=== PATIENT | male | born 1960 ===

== ENCOUNTER → 2019-12-25 11:07 | Outpatient (BNVA) | payer MEDICAID, SELFPAY | PROVIDERS: PCP Internal Medicine; Referring Provider Internal Medicine; Visit Provider Nurse Practitioner Gerontology | DX: E11.29 Type 2 diabetes mellitus with other diabetic kidney complication (principal); E11.65 Type 2 diabetes mellitus with hyperglycemia; I10 Essential (primary) hypertension; R80.9 Proteinuria, unspecified; Z79.4 Long term (current) use of insulin; Z79.899 Other long term (current) drug therapy | CPT/HCPCS: 99213; Q3014 ==

== ENCOUNTER 2020-01-04 07:57 | Outpatient (REF) | payer MEDICAID, SELFPAY ==
[2020-01-04 09:43] LABS: Estimated Average Glucose 280 mg/dL; Hemoglobin A1c % 11.4 %
[2020-01-04 10:17] LABS: Alanine Aminotransferase 45 U/L (0-40); Albumin Level 3.5 g/dL (3.5-5.0); Alkaline Phosphatase 91 U/L (39-117); Anion Gap 10 (12-20); Aspartate Amino Transferase 50 U/L (5-37); Bilirubin Total 1.3 mg/dL (0.0-1.0); Blood Urea Nitrogen 13 mg/dL (9-16); Calcium 8.5 mg/dL (8.4-10.2); Carbon Dioxide 28 mmol/L (22-29); Chloride 103 mmol/L (96-108); Cholesterol 172 mg/dL; Estimated Glomerular Filt Rate > 60; Glucose Fasting 243 mg/dL (60-99); HDL Cholesterol 43 mg/dL; LDL Cholesterol Calculated 103 mg/dl; Sodium 137 mmol/L (135-145); Total Protein 6.8 g/dL (6.5-8.0); Triglycerides 131 mg/dL
[2020-01-04 10:22] LABS: Creatinine Urine 193.51 mg/dL
[2020-01-04 10:44] LABS: Microalbum/Creatinine Ratio Ur 361.7 ug/mg cr
[2020-01-05 06:47] LABS: LDL Cholesterol Direct 89 mg/dL (<100)
== END 2020-01-04 07:58 | disposition home or self-care (01) ==
LOC: HO.LAB 07:57
PROVIDERS: PCP Internal Medicine; Visit Provider Nurse Practitioner Gerontology
DX: E11.65 Type 2 diabetes mellitus with hyperglycemia (principal)
CPT/HCPCS: 80053; 80061; 82043; 83036; 83721

== ENCOUNTER → 2020-01-22 13:46 | Outpatient (BNVA) | payer MEDICAID, SELFPAY | PROVIDERS: PCP Internal Medicine; Referring Provider Internal Medicine; Visit Provider Nurse Practitioner Gerontology | DX: E11.65 Type 2 diabetes mellitus with hyperglycemia (principal); E11.29 Type 2 diabetes mellitus with other diabetic kidney complication; R80.9 Proteinuria, unspecified; I10 Essential (primary) hypertension; Z79.4 Long term (current) use of insulin | CPT/HCPCS: 99212 ==

== ENCOUNTER 2020-05-20 08:04 | Outpatient (REF) | payer MEDICAID, SELFPAY ==
[2020-05-20 09:02] LABS: Basophils Absolute Auto 0.1 X10*3/uL (0.0-0.2); Basophils Percent Auto 1.1 % (0-2); Eosinophils Absolute Auto 0.3 X10*3/uL (0.0-0.4); Eosinophils Percent Auto 3.9 % (0-4); Imm Gran Abs Auto 0.01 X10*3/uL (0.00-0.03); Imm Gran Pct Auto 0.2 % (0.0-0.4); MANUAL DIFF FLAG SCAN; Mean Corpuscular HGB Conc 34.4 g/dl (31.0-36.0); Mean Corpuscular Hemoglobin 29.9 pg (27.0-33.0); Mean Corpuscular Volume 86.9 fL (80-98); Red Cell Distribution Width 13.5 % (11.0-16.0); SCAN SMEAR FLAG 1
[2020-05-20 09:04] LABS: Hematocrit 43.3 % (42-52); Hemoglobin 14.9 g/dl (14.0-18.0); Lymphocytes Absolute Auto 1.3 X10*3/uL (1.2-4.9); Lymphocytes Percent Auto 19.7 % (20-40); Mean Platelet Volume 12.9 fL (9.4-12.4); Monocytes Absolute Auto 0.6 X10*3/uL (0.1-1.2); Monocytes Percent Auto 9.6 % (2-11); Neutrophils Absolute Auto 4.2 X10*3/uL (2.0-8.3); Neutrophils Percent Auto 65.5 % (45-73); Red Blood Count 4.98 X10*6/uL (4.60-5.80); White Blood Count 6.4 X10*3/uL (4.8-10.8)
[2020-05-20 09:06] LABS: PLT ABN DIST 1
[2020-05-20 09:14] LABS: Estimated Average Glucose 278 mg/dL; Hemoglobin A1c % 11.3 %
[2020-05-20 09:25] LABS: Creatinine Urine 125.11 mg/dL
[2020-05-20 09:30] LABS: Anion Gap 8 (12-20); Blood Urea Nitrogen 14 mg/dL (9-16); Carbon Dioxide 28 mmol/L (22-29); Chloride 102 mmol/L (96-108); Cholesterol 194 mg/dL; Estimated Glomerular Filt Rate > 60; Glucose Random 309 mg/dL (60-115); HDL Cholesterol 46 mg/dL; LDL Cholesterol Calculated 124 mg/dl; Potassium 4.2 mmol/L (3.3-5.1); Sodium 134 mmol/L (135-145); Triglycerides 123 mg/dL
[2020-05-20 09:40] LABS: Microalbum/Creatinine Ratio Ur 700.9 ug/mg cr
[2020-05-20 10:04] LABS: Platelet Count 76 X10*3/uL (160-400)
[2020-05-20 10:05] LABS: SLIDE REVIEW VERIFIED
== END 2020-05-20 08:05 | disposition home or self-care (01) ==
LOC: HO.LAB 08:04
PROVIDERS: Absent Provider Nurse Practitioner Gerontology; PCP Internal Medicine; Visit Provider Internal Medicine
DX: E11.65 Type 2 diabetes mellitus with hyperglycemia (principal); I73.9 Peripheral vascular disease, unspecified; K74.60 Unspecified cirrhosis of liver; R07.89 Other chest pain
CPT/HCPCS: 36415; 80048; 80061; 82043; 83036; 85025

== ENCOUNTER → 2020-06-01 11:38 | Outpatient (BNVA) | payer MEDICAID, SELFPAY | PROVIDERS: PCP Internal Medicine; Visit Provider Nurse Practitioner Gerontology ==

== ENCOUNTER 2020-06-07 13:05 | Outpatient (REF) | payer MEDICAID, SELFPAY ==
--- NOTE | ~2020-06-07 | US_ITS ---
EXAMINATION: NONINVASIVE ASSESSMENT OF THE ARTERIES OF BOTH LOWER EXTREMITIES WITH PVR EXAM AND BILATERAL LOWER EXTREMITY DUPLEX CLINICAL INFORMATION: Peripheral vascular disease TECHNIQUE: Duplex Doppler techniques with wave form analysis and measurement of velocities in the common femoral, profunda femoral, superficial femoral, popliteal and tibial arteries bilaterally. The study was performed only at rest. COMPARISON: None FINDINGS: a) AT REST: RIGHT LEG: Right direct duplex Doppler findings: Normal. * Common femoral artery: 211 cm/s, Diastolic flow reversal: Yes * Superficial femoral artery (proximal, mid, distal): 142, 143 and 192 cm/s, Diastolic flow reversal: Yes * Popliteal artery: 80 cm/s, Diastolic flow reversal: Yes * Posterior tibial artery: 106 cm/s, Diastolic flow reversal: Yes Left LEG: Left direct duplex Doppler findings: Normal. * Common femoral artery: 173 cm/s, Diastolic flow reversal: Yes * Superficial femoral artery (proximal, mid, distal): 117, 144 and 154 cm/s, Diastolic flow reversal: Yes * Popliteal artery: 99 cm/s, Diastolic flow reversal: Yes * Posterior tibial artery: 100 cm/s, Diastolic flow reversal: Yes US/US arterial duplex LE BI IMPRESSION: Slightly elevated peak systolic velocities in the bilateral common femoral and distal superficial femoral arteries bilaterally suggestive of mild atherosclerotic disease. No evidence of hemodynamically significant stenosis.
== END 2020-06-07 13:06 | disposition home or self-care (01) ==
LOC: HO.US 13:05
PROVIDERS: PCP Internal Medicine; Visit Provider Internal Medicine
DX: I73.9 Peripheral vascular disease, unspecified (principal)
CPT/HCPCS: 93925

== ENCOUNTER → 2020-09-06 09:37 | Outpatient (BNVA) | payer MEDICAID, SELFPAY | PROVIDERS: PCP Internal Medicine; Visit Provider Nurse Practitioner Gerontology ==

== ENCOUNTER 2020-09-21 08:20 | Outpatient (REF) | payer MEDICAID, SELFPAY ==
--- NOTE | ~2020-09-21 | US_ITS ---
EXAMINATION: US ABDOMEN COMPLETE CLINICAL INFORMATION: Hepatitis C. History of liver cirrhosis. COMPARISON: Ultrasound abdomen 12/03/2018. CT abdomen and pelvis 01/15/2018. TECHNIQUE: Real-time imaging of the abdominal viscera. FINDINGS: PANCREAS: Normal. ABDOMINAL AORTA: The proximal, mid, and distal segments are normal in caliber. INFERIOR VENA CAVA: Visualized portions are normal. LIVER: The liver is cirrhotic with increased heterogeneous liver echotexture and irregular scalloped contour. There is question of a slightly hyperechoic mass in the caudate lobe measuring 5.1 x 4.2 x 4.6 cm versus possibly enlarged lymph node. There is no intra or extrahepatic biliary duct dilatation. GALLBLADDER: Normal. The gallbladder is physiologically distended without evidence of stones, sludge, polyps, wall thickening or pericholecystic fluid. COMMON BILE DUCT: Normal in caliber measuring 0.4 cm in diameter. RIGHT KIDNEY: Normal No hydronephrosis. No renal calculi or focal parenchymal lesions. The kidney measures 13.6 cm in maximum dimension. LEFT KIDNEY: There is a left pelvic kidney. No hydronephrosis. No renal calculi or focal parenchymal lesions. The kidney measures 13.8 cm in maximum dimension. SPLEEN: The spleen is enlarged. The spleen measures 15.9 cm in maximum dimension. FREE FLUID: None. US/US abdomen complete IMPRESSION: Cirrhotic-appearing liver. Question 5.1 x 4.2 x 4.6 cm slightly hyperechoic mass in the caudate lobe. Follow-up MRI with contrast recommended. Enlarged spleen. No ascites. Left pelvic kidney.
== END 2020-09-21 08:21 | disposition home or self-care (01) ==
LOC: HO.US 08:20
PROVIDERS: PCP Internal Medicine; Visit Provider Internal Medicine
DX: B18.2 Chronic viral hepatitis C (principal)
CPT/HCPCS: 76700

== ENCOUNTER 2020-09-30 10:18 | Outpatient (REF) | payer MEDICAID, SELFPAY ==
--- NOTE | ~2020-09-30 | MR_ITS ---
EXAMINATION: MR ABDOMEN WITHOUT AND WITH CONTRAST CLINICAL INFORMATION: Hepatomegaly and cirrhosis. COMPARISON: Previous abdominal ultrasound September [address] of the abdomen and pelvis December 2017. TECHNIQUE: MR abdomen was performed without and with use of 10 mL intravenous Gadavist gadolinium contrast. Postcontrast images are performed in multiphase dynamic sequences. Imaging was performed in 3 planes. FINDINGS: LUNG BASES: The visualized lung bases are unremarkable. LIVER, GALLBLADDER, AND BILIARY TREE: The liver is cirrhotic with irregular scalloped contour. Later sequences are limited due to motion artifact, particularly postcontrast sequences. There is heterogeneous enhancement of the liver suggestive of fibrosis. There is a small area of early arterial phase enhancement seen high in the dome of the right lobe of the liver that measures 7 mm axial image 19 series 100. This is not appreciated precontrast or on later postcontrast enhanced sequences. There is a 4.5 x 4 x 4 cm lesion in the central liver. This is low signal on T1-weighted sequences, high signal on T2-weighted sequences and demonstrates homogeneous enhancement. This appears outside the caudate lobe on sagittal and coronal sequences and enlarged lymph node over liver lesion is favored. There is no biliary duct dilatation. The gallbladder is normal-appearing. PANCREAS: Unremarkable. SPLEEN: The spleen is enlarged and measures 16.5 cm in length. ADRENAL GLANDS: Normal. KIDNEYS AND URETERS: There is a left pelvic kidney. The right kidney is unremarkable. GASTROINTESTINAL TRACT: No bowel obstruction. No ascites or fluid collection. ABDOMINAL WALL: No significant hernia is appreciated. LYMPH NODES: No other lymphadenopathy is seen. There is no ascites. VASCULAR: There are varices adjacent to the spleen and stomach. Vascular structures are otherwise unremarkable. OSSEOUS STRUCTURES: Marrow signal normal. MR/MR abdomen wo/w con IMPRESSION: Limited exam due to motion artifact. 4.5 x 4 x 4 cm solid enhancing lesion in the central liver. Appearance is more suggestive of an enlarged periportal lymph node than exophytic caudate lobe mass. Percutaneous biopsy would be difficult given central location. Possibly this could be reached with endoscopic ultrasound and biopsy. Cirrhotic-appearing liver. 8 mm area of early arterial phase enhancement in the dome of the right lobe of the liver. Imaging follow-up recommended. Splenomegaly and varices. Left pelvic kidney.
== END 2020-09-30 10:19 | disposition home or self-care (01) ==
LOC: HO.MRI 10:18
PROVIDERS: Visit Provider Internal Medicine
DX: R16.0 Hepatomegaly, not elsewhere classified (principal)
CPT/HCPCS: 74183; A9585

== ENCOUNTER → 2020-10-21 15:13 | Outpatient (BNVA) | payer MEDICAID, SELFPAY | PROVIDERS: Visit Provider Nurse Practitioner ==

== ENCOUNTER 2020-10-25 11:16 | Outpatient (REF) | payer MEDICAID, SELFPAY ==
[2020-10-25 12:20] LABS: Mean Corpuscular Volume 87.2 fL (80-98); Monocytes Absolute Auto 0.6 X10*3/uL (0.1-1.2)
[2020-10-25 12:22] LABS: Basophils Absolute Auto 0.1 X10*3/uL (0.0-0.2); Basophils Percent Auto 1.3 % (0-2); Eosinophils Absolute Auto 0.2 X10*3/uL (0.0-0.4); Hematocrit 43.7 % (42-52); Hemoglobin 15.1 g/dl (14.0-18.0); Imm Gran Abs Auto 0.01 X10*3/uL (0.00-0.03); Imm Gran Pct Auto 0.1 % (0.0-0.4); Lymphocytes Absolute Auto 1.3 X10*3/uL (1.2-4.9); Mean Corpuscular HGB Conc 34.6 g/dl (31.0-36.0); Mean Corpuscular Hemoglobin 30.1 pg (27.0-33.0); Monocytes Percent Auto 8.1 % (2-11); Neutrophils Absolute Auto 4.7 X10*3/uL (2.0-8.3); Neutrophils Percent Auto 68.5 % (45-73); Red Blood Count 5.01 X10*6/uL (4.60-5.80); White Blood Count 6.9 X10*3/uL (4.8-10.8)
[2020-10-25 12:24] LABS: Platelet Count 79 X10*3/uL (160-400)
[2020-10-25 12:25] LABS: MANUAL DIFF FLAG NO
[2020-10-25 12:51] LABS: Alanine Aminotransferase 37 U/L (0-40); Albumin Level 3.4 g/dL (3.5-5.0); Alkaline Phosphatase 152 U/L (39-117); Anion Gap 13 (12-20); Aspartate Amino Transferase 57 U/L (5-37); Bilirubin Total 1.4 mg/dL (0.0-1.0); Blood Urea Nitrogen 17 mg/dL (9-16); Calcium 9.3 mg/dL (8.4-10.2); Carbon Dioxide 25 mmol/L (22-29); Chloride 103 mmol/L (96-108); Estimated Glomerular Filt Rate > 60; Glucose Random 436 mg/dL (60-115); Potassium 4.7 mmol/L (3.3-5.1); Sodium 136 mmol/L (135-145); Total Protein 7.2 g/dL (6.5-8.0)
[2020-10-25 12:54] LABS: HBc Num1 0.26 S/CO (0.00-0.79); HBsAGNum1 0.17 S/CO (0.00-0.99); Hepatitis B Core Antibody Nonreactive (Nonreactive); Hepatitis B Surface Antigen Negative (Negative); ~Hepatitis C Antibody Reactive (Nonreactive)
[2020-10-25 13:00] LABS: Ferritin 108 ng/mL (20-250)
[2020-10-25 14:15] LABS: HBS Num1 16.72 mIU/mL (0-7.99); ~Hepatitis B Surface Antibody REACTIVE (Nonreactive)
[2020-10-26 08:10] LABS: Hepatitis A Antibody IgM 0.21 Index (0-0.79); ~Hepatitis A Antibody IgM Nonreactive (Nonreactive)
[2020-10-27 11:20] LABS: Alpha Fetoprotein 645.9 ng/mL (<6.1)
[2020-10-27 14:51] LABS: HCV Log PCR <1.18 NOT DETECTED Log IU/mL (NOT DETECTED); HepC Viral Load <15 NOT DETECTED IU/mL (NOT DETECTED)
== END 2020-10-25 11:17 | disposition home or self-care (01) ==
LOC: HO.LAB 11:16
PROVIDERS: PCP Internal Medicine; Visit Provider Nurse Practitioner
DX: Z01.84 Encounter for antibody response examination (principal); Z11.59 Encounter for screening for other viral diseases; K74.60 Unspecified cirrhosis of liver
CPT/HCPCS: 36415; 80053; 82105; 82728; 85025; 86704; 86706; 86709; 86803; 87340; 87522

== ENCOUNTER → 2020-11-24 15:13 | Outpatient (BNVA) | payer MEDICAID, SELFPAY | PROVIDERS: PCP Internal Medicine; Visit Provider Nurse Practitioner ==

== ENCOUNTER 2021-08-27 09:48 | Emergency (ER) | payer OTHER, MEDICAID, SELFPAY ==
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
[2021-08-27 09:56] VITALS: BP 155/72; PULSE 69; RESP 18; TEMP 36.8; O2SAT 99; BMI 32.1
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
[2021-08-27 10:19] VITALS: BP 149/78; PULSE 70; RESP 18; TEMP 36.8; O2SAT 96
--- NOTE | 2021-08-27 10:27 | PC.NURSE ---
small laceration noted to left earlobe
[2021-08-27 11:54] VITALS: BP 151/66; PULSE 66; RESP 18; TEMP 36.7; O2SAT 96
[2021-08-27] MEDS: Diphth,Pertus(ACell),Tet Adult 0.5 ML SYRINGE IM (14:33)
--- NOTE | 2021-08-27 14:39 | PC.NURSE ---
Administered d antwan vaccine prior to discharge . went over discharge instructions as ordered . no questions at this time .
== END 2021-08-27 14:43 | disposition home or self-care (01) ==
PROVIDERS: Emergency Provider Emergency Medicine; PCP Internal Medicine
DX: S01.312A Laceration without foreign body of left ear, initial encounter (principal); I10 Essential (primary) hypertension; E11.9 Type 2 diabetes mellitus without complications; J44.9 Chronic obstructive pulmonary disease, unspecified; Z79.4 Long term (current) use of insulin; V49.40XA Driver injured in collision with unspecified motor vehicles in traffic accident, initial encounter; Y93.9 Activity, unspecified; Y92.410 Unspecified street and highway as the place of occurrence of the external cause; Y99.9 Unspecified external cause status
CPT/HCPCS: 12011; 70450; 71250; 72125; 90471; 90715; 99284

== ENCOUNTER 2022-03-05 06:02 | Outpatient (REF) | payer MEDICAID, SELFPAY ==
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
[2022-03-05] MEDS: Barium Sulfate Oral (Vanilla) 450 ML ORAL.SUSP 900 ML PO (08:26)
[2022-03-05] MEDS: iohexoL 350 MG/ML 100 ML INFUS..BTL 85 ML IV (08:27)
== END 2022-03-05 06:03 | disposition home or self-care (01) ==
LOC: HO.CT 06:02
PROVIDERS: Visit Provider Internal Medicine
DX: C22.0 Liver cell carcinoma (principal)
CPT/HCPCS: 71260; 74177; Q9967

== ENCOUNTER → 2022-03-20 13:03 | Outpatient (BNVA) | payer MEDICAID, SELFPAY | PROVIDERS: Visit Provider Internal Medicine | DX: C22.0 Liver cell carcinoma (principal); B19.20 Unspecified viral hepatitis C without hepatic coma; K74.60 Unspecified cirrhosis of liver; K76.82 Hepatic encephalopathy; I85.00 Esophageal varices without bleeding; E11.65 Type 2 diabetes mellitus with hyperglycemia; E11.29 Type 2 diabetes mellitus with other diabetic kidney complication; E11.42 Type 2 diabetes mellitus with diabetic polyneuropathy; I10 Essential (primary) hypertension; Z79.899 Other long term (current) drug therapy | CPT/HCPCS: 99202; 99212 ==

== ENCOUNTER 2022-03-27 13:08 | Outpatient (REF) | payer MEDICAID, SELFPAY ==
[2022-03-27 13:22] LABS: MANUAL DIFF FLAG NO
[2022-03-27 13:25] LABS: Basophils Absolute Auto 0.1 X10*3/uL (0.0-0.2); Basophils Percent Auto 1.4 % (0-2); Eosinophils Absolute Auto 0.3 X10*3/uL (0.0-0.4); Eosinophils Percent Auto 3.2 % (0-4); Hematocrit 38.2 % (42.0-52.0); Hemoglobin 12.8 g/dl (14.0-18.0); Imm Gran Abs Auto 0.04 X10*3/uL (0.00-0.03); Imm Gran Pct Auto 0.5 % (0.0-0.4); Lymphocytes Absolute Auto 1.1 X10*3/uL (1.2-4.9); Mean Corpuscular HGB Conc 33.5 g/dl (31.0-36.0); Mean Corpuscular Volume 89.5 fL (80.0-98.0); Mean Platelet Volume 12.5 fL (9.4-12.4); Monocytes Absolute Auto 0.8 X10*3/uL (0.1-1.2); Monocytes Percent Auto 8.6 % (2-11); Neutrophils Absolute Auto 6.5 x10*3/uL (2.0-8.3); Neutrophils Percent Auto 74.3 % (45-73); Platelet Count 139 X10*3/uL (160-400); Red Blood Count 4.27 X10*6/uL (4.60-5.80); Red Cell Distribution Width 15.2 % (11.0-16.0); White Blood Count 8.8 X10*3/uL (4.8-10.8)
[2022-03-27 14:02] LABS: Alanine Aminotransferase 104 U/L (0-40); Albumin Level 2.7 g/dL (3.5-5.0); Alkaline Phosphatase 469 U/L (39-117); Anion Gap 8 (12-20); Aspartate Amino Transferase 200 U/L (5-37); Bilirubin Total 2.7 mg/dL (0.0-1.0); Blood Urea Nitrogen 15 mg/dL (9-16); Calcium 9.2 mg/dL (8.4-10.2); Carbon Dioxide 26 mmol/L (22-29); Chloride 104 mmol/L (96-108); Estimated Glomerular Filt Rate > 60; Glucose Random 309 mg/dL (60-115); Potassium 4.6 mmol/L (3.3-5.1); Sodium 133 mmol/L (135-145); Total Protein 7.1 g/dL (6.5-8.0)
[2022-03-27 14:18] LABS: Thyroid Stimulating Hormone 1.64 uIU/mL (0.32-4.0)
[2022-03-28 15:08] LABS: HCV Log PCR <1.18 NOT DETECTED Log IU/mL (NOT DETECTED); HepC Viral Load <15 NOT DETECTED IU/mL (NOT DETECTED)
== END 2022-03-27 13:09 | disposition home or self-care (01) ==
LOC: HO.LAB 13:08
PROVIDERS: Absent Provider Internal Medicine; Visit Provider Internal Medicine
DX: C22.0 Liver cell carcinoma (principal); Z79.899 Other long term (current) drug therapy
CPT/HCPCS: 36415; 80053; 84443; 85025; 87522

== ENCOUNTER 2022-06-27 16:03 | Inpatient (IN) | payer MEDICAID, SELFPAY ==
--- NOTE | ~2022-06-27 | CT_ITS ---
EXAMINATION: CT ANGIOGRAM ABDOMEN AND PELVIS CLINICAL INFORMATION: hemorrhage in omental fat, ascites vs blood pelvis COMPARISON: CT abdomen pelvis 06/27/2022 TECHNIQUE: Noncontrast axial images obtained through the chest. Multiple axial images were obtained through the chest abdomen and pelvis following the administration of 80 mL of Omnipaque 350 intravenous contrast. Delayed images obtained through the abdomen and pelvis as well. Coronal and sagittal reformatted images performed at CT scanner. No 3-D imaging. DLP: 714 mGy-cm. FINDINGS: VASCULAR: Significant varices in the left upper quadrant related to portal hypertension. There is pooling contrast within the stomach. This contrast is evident. On the national account executive views before IV contrast. Patient did not receive IV contrast on the CAT scan performed earlier today, 7:17 PM. The source of this contrast is therefore uncertain but may have been oral contrast or medication patient received prior to this study. Contrast opacifies the small bowel loops. An acute hemorrhage at the stomach related to varices cannot be excluded however. Area of omental hyperdensity concerning for hemorrhage at the anterior mesentery remains similar prior study. There are prominent vessels from the portal hypertension in the mesentery in this area. A site of active hemorrhage is not defined. Vascular calcification of aorta and iliac arteries. No aneurysm of the aorta. Portal vein is attenuated but remains patent. LUNG BASES: Lung bases normally aerated. No pleural effusion. LIVER, GALLBLADDER, AND BILIARY TREE: Cirrhotic liver with nodular contour. There is a exophytic left hepatic lobe mass lesion demonstrating heterogeneous enhancement this mass has increased in size since prior studies. This is concerning for hepatocellular cancer. . The gallbladder is unremarkable with no evidence of radiopaque gallstones, gallbladder wall thickening, or obvious pericholecystic inflammatory changes. PANCREAS: Unremarkable. SPLEEN: Spleens enlarged measuring 13 cm. ADRENAL GLANDS: Unremarkable. KIDNEYS AND URETERS: Redemonstration normal variant of a malrotated left pelvic kidney. The right kidney is normal in position. No calculus or hydronephrosis. BLADDER: Unremarkable. GASTROINTESTINAL TRACT: There are numerous diverticula of the sigmoid colon. There is no diverticulitis. There is no bowel wall thickening /edema. There is no bowel obstruction. There is a moderate volume of stool in the colon. The appendix is normal . The small bowel loops are unremarkable. The stomach is normal. There is no hiatal hernia. MESENTERY: Large volume of abdominal ascites. ABDOMINAL WALL: No significant hernia is appreciated. LYMPH NODES: Large mass in the central mesentery appears partially necrotic. This is favored to be an enlarged lymph node but is inseparable from the adjacent exophytic mass at the liver. This is in contact with pancreatic body. Measures about 9 cm in size. This does have mass effect on the adjacent stomach. Redemonstration of a 1 cm retrocrural lymph node at the aortic hiatus. Largest lymph node in the retroperitoneum adjacent to the area in the upper abdomen measuring 1.9 cm. PELVIC VISCERA: Unremarkable. OSSEOUS STRUCTURES: Lytic destructive process of the right L3 lamina consistent with metastatic disease. CT/CT gi bleed abd pel wo/w IVcon IMPRESSION: 1. Cirrhosis of liver. Splenomegaly. Large volume of abdominal ascites. 2. There is pooling of contrast within the stomach. Patient did not receive IV contrast on the CAT scan performed earlier today, 7:17 PM. The source of this contrast is therefore uncertain but may have been oral contrast or medication patient received prior to this study. 3. Redemonstration of the omental hyperdensity concerning for hemorrhage at the anterior mesentery. A site of hemorrhage however is not defined. This is not changed in appearance since prior exam performed earlier today. 4. Redemonstration of the large mass in the central mesentery which is favored to be an enlarged lymph node but is inseparable from the adjacent mass at the liver. This is in contact with the pancreatic body. This is in contact with the retrocrural lymph node at the aortic hiatus. Largest lymph node in the retroperitoneum in the upper abdomen measuring 1.9 cm. 5. Lytic destructive process of the right L3 lamina consistent with metastatic disease. 6. Diverticulosis of the colon. No acute abnormality of the bowel. This critical result was discussed with SHIVANI Celis on 06/27/2022, 11:00 PM and it was ascertained that the content and urgency of the report was understood at the time of direct communication.
--- NOTE | ~2022-06-27 | CT_ITS ---
EXAMINATION: CT ABDOMEN AND PELVIS WITHOUT CONTRAST CLINICAL INFORMATION: Worsening abdominal pain. COMPARISON: 03/05/2022 TECHNIQUE: Multidetector volumetric imaging was performed from the superior aspect of the liver through the pubic symphysis. Sagittal and coronal reformatted images were obtained on the technologist's workstation. This CT examination was performed using dose optimization techniques as appropriate, variously including the following: *Automated exposure control *Adjustment of mA and/or kV according to patient size (this includes techniques or standardized protocols for targeted exams where dose is matched to indication/reason for exam; i.e. extremities or head) *Use of iterative reconstruction technique DLP: 546 mGy-cm FINDINGS: LUNG BASES: No acute findings within the visualized bases. No pulmonary consolidation or pleural effusion. A right-sided retrocrural lymph node is 1.1 cm in short axis dimension (0.9 cm on 03/05/2022). LIVER: The cirrhotic liver has nodular surface contour. There is heterogeneous hypoattenuation in the left hepatic lobe in the area of masslike lesion that exhibited heterogeneous arterial phase hyperenhancement and washout features on 03/05/2022. The liver is not optimally evaluated on this noncontrast examination. A nonspecific 1.3 cm hypodense focus within hepatic segment 6 is unchanged compared to 03/05/2022 (image 32, series 3). GALLBLADDER AND BILIARY TREE: Gallbladder is physiologically distended and appears to contain sludge. No dilated bile ducts. PANCREAS: The pancreatic body is compressed by what is suspected to represent a large lymph node in the peripancreatic region. SPLEEN: Chronic splenomegaly. Spleen is 15.5 cm in craniocaudal dimension. ADRENAL GLANDS: Normal. KIDNEYS AND URETERS: Kidneys are normal in size. No renal stones or hydronephrosis. Again noted is a malrotated left kidney located in the left pelvis. BLADDER: Unremarkable. BOWEL AND PERITONEUM: No dilated bowel loops. The proximal stomach is displaced anteriorly and toward the left of midline by the increased size of lymphadenopathy in the periportal/peripancreatic region of the upper abdomen. Moderate volume of free fluid is present in the abdomen and pelvis. The majority of fluid is in the range of water attenuation. Also, there is mild amount of patchy hyperdense hemorrhage within omental fat deep to the upper abdominal wall. A blood-fluid level is seen within the ascitic fluid in the pelvis. ABDOMINAL WALL: Mild edema is present in subcutaneous changes tissues. VASCULATURE: Atherosclerosis of the abdominal aorta without aneurysm. The esophageal varices previously seen on contrast-enhanced imaging are not visible on this noncontrast examination. Again noted are large left gastric and perisplenic varices. LYMPH NODES: A lymph node in the aortocaval region is 1.8 cm in short axis dimension (1.7 cm on prior exam). The mass in the periportal region is difficult to separate from the caudate lobe; this is thought to represent lymphadenopathy rather than exophytic tumor arising from the caudate. This measures approximately 5 cm AP and is not significantly changed in size compared to 03/05/2022 (image 19, series 3). The adjacent mass (suspected lymphadenopathy) in contact with the pancreatic body currently measures at least 9 cm AP compared to 6.5 cm on 03/05/2022 (image 28, series 3) and exerts mass effect upon the adjacent stomach. The previously detected loculated fluid collection in the upper abdomen posterior to the stomach and anterior to the pancreas has decreased in size (image 33, series 3). PELVIC VISCERA: Prostate gland is unremarkable. MUSCULOSKELETAL: The visualized lower thoracic and lumbar vertebra are normal in height and alignment. A lytic destructive metastatic lesion involves the right L3 lamina and spinous process. No pathologic fracture. Small, 0.4 cm lucency was visible in the right L3 lamina on 03/05/2022. CT/CT abdomen pelvis wo IV con IMPRESSION: * Limited noncontrast imaging examination of the abdomen and pelvis is performed. * Cirrhotic liver, varices and splenomegaly. There is heterogeneous hypodensity in the left hepatic lobe in region of the suspected hepatocellular carcinoma seen on prior CT imaging from 03/05/2022. * The large lymph node in the periportal region adjacent to the caudate lobe is stable compared to 03/05/2022 whereas the other suspected large upper abdominal lymph node has increased in size and exerts mass effect upon the adjacent stomach. * Moderate volume of ascitic fluid is present and there is new patchy hyperdense hemorrhage within omental fat, and blood-fluid level is visible within the pelvis. Follow-up CT angiography examination in arterial and venous phases might be able to help define any source of bleeding. * Significant enlargement of a lytic metastatic lesion involving right L3 lamina and spinous process.
--- NOTE | ~2022-06-27 | US_ITS ---
EXAMINATION: US ULTRASOUND-GUIDED PARACENTESIS CLINICAL INFORMATION: Hemorrhage in omental fat. Ascites. COMPARISON: 06/27/2022 TECHNIQUE: Ultrasound-guided paracentesis FINDINGS: Informed consent was obtained from the patient prior to the procedure. During this process, the procedure and potential alternatives were explained, along with the intended outcome and benefits. The risks of the procedure, as well as the risk of not doing the procedure, were discussed. The patient was given the opportunity to ask questions regarding the procedure and appeared competent to make medical decisions. A signed consent form which documents this discussion was placed in the medical record. Using sterile technique and ultrasound guidance a 5 [place] Yueh needle was directed into the right lower quadrant ascites collection. A total of 2.5 L of nonclotting sanguineous fluid was removed. Samples were sent for laboratory studies. Patient tolerated procedure without difficulty. US/US paracentesis abd w/image IMPRESSION: Paracentesis with removal of 2.5 L of nonclotting sanguineous fluid.
[2022-06-27 16:39] VITALS: BP 123/63; BP 141/80; PULSE 65; PULSE 90; RESP 18; TEMP 36.7; O2SAT 97; O2SAT 99; BMI 24.9
--- NOTE | 2022-06-27 17:09 | ECG_ITS ---
Test Reason : ABD PAIN Blood Pressure : / mmHG Vent. Rate : 066 BPM Atrial Rate : 066 BPM P-R Int : 130 ms QRS Dur : 080 ms QT Int : 396 ms P-R-T Axes : 000 -24 144 degrees QTc Int : 415 ms Normal sinus rhythm Low voltage QRS Cannot rule out Anterior infarct , age undetermined Abnormal ECG When compared with ECG of 15-JAN-2018 14:21, Nonspecific T wave abnormality now evident in Inferior leads Referred By: Lorna Briseno Electronically Signed By:ZOHREH SAUCEDA MD
--- NOTE | 2022-06-27 17:25 | ED_ITS ---
HPI - Abdominal Pain General Chief Complaint: Abdominal Pain Stated Complaint: abdominal pain Time Seen by Provider: 06/27/22 16:10 Source: patient and EMS Mode of arrival: EMS Limitations: no limitations History of Present Illness HPI narrative: Patient comes to the emergency room complaining of right upper quadrant pain that started this morning. Patient denies diarrhea, complaining of nausea and vomiting. Patient states that he thinks this is pancreatitis as he has had this condition in the past. Patient has past medical history of hepatocellular carcinoma, hepatitis-C, cirrhosis, alcohol abuse, pancreatitis, type 2 diabetes and hypertension. Patient denies any fever or chills. Patient started with chemotherapy 2 months ago. Related Data Home Medications Medication Instructions Recorded Confirmed nadolol 40 mg tablet 20 mg PO DAILY 12/25/19 05/23/22 albuterol sulfate 90 mcg/actuation 2 puff inhalation Q4-6H PRN 03/01/22 05/23/22 aerosol inhaler (ProAir HFA) Shortness Of Breath Or Wheezing insulin aspart U-100 100 unit/mL 6 unit subcut TID 03/20/22 05/23/22 (3 mL) subcutaneous pen insulin degludec 200 unit/mL (3 100 unit subcut BEDTIME 03/20/22 05/23/22 mL) subcutaneous pen (Tresiba FlexTouch U-200 insulin) lactulose 10 gram/15 mL oral 15 ml PO BID PRN constipation 03/20/22 05/23/22 solution losartan 100 mg tablet 100 mg PO DAILY 03/20/22 05/23/22 amlodipine 5 mg tablet 1 tab PO DAILY 05/23/22 05/23/22 Previous Rx's Medication Instructions Recorded pen needle, diabetic 32 gauge x #60 ea 01/08/20 (BD Ultra-Fine Jennyfer Pen Needle) terbinafine HCl 1 % topical cream 1 appl topical BID 30 days #15 06/01/20 (Antifungal (terbinafine)) grams blood sugar diagnostic (FreeStyle 1 strip miscellaneous QID for 11/10/20 Lite Strips) diabetes mellitus #150 strips lancets 28 gauge (TRUEplus Lancets) #100 ea 08/21/21 ondansetron 8 mg disintegrating 8 mg PO Q8H PRN Nausea #60 tabs 03/21/22 tablet omeprazole 20 mg capsule,delayed 20 mg PO BID #60 caps 03/28/22 release spironolactone 100 mg tablet 100 mg PO DAILY #30 tabs 05/17/22 Allergies Allergy/AdvReac Type Severity Reaction Status Date / Time lisinopril [LISINOPRIL] Allergy Intermediate Shortness Verified 05/23/22 11:40 of Breath Review of Systems Review of Systems Constitutional : No Weight loss, No Fever, No Chills, No Night Sweats, No Fatigue, No Malaise ENT/Mouth : No Hearing loss, No Ear Pain, No Nasal Congestion, No Sinus Pain, No Hoarseness, No sore throat, No Rhinorrhea, No Swallowing Difficulty Eyes: No Eye Pain, No Swelling, No Redness, No Foreign Body, No Discharge, No Vision Changes Cardiovascular : No Chest Pain, No SOB, No Dyspnea on Exertion, No Orthopnea, No Edema, No Palpitations Respiratory : No Cough, No Sputum, No Wheezing, No Smoke Exposure, No Dyspnea Gastrointestinal : Complaining of nausea and vomiting, no diarrhea constip ation, complaining of right upper quadrant abdominal pain Genitourinary : no irregular bleeding, No Dysuria, No Urinary Frequency, No Hematuria, No Urinary Incontinence, No Urgency, No Flank Pain, No Urinary Flow Changes, No Hesitancy Musculoskeletal : No joint pain, No Myalgias, No Joint Swelling Skin : No Skin Lesions, No rash Neuro : No Weakness, No Numbness, No Paresthesias, No Loss of Consciousness, No Dizziness, No Headache Psych : No Anxiety/Panic, No Depression, No SI/HI/AH/VH, No Social Issues, Heme/Lymph: No Bruising, No Bleeding,No Lymphadenopathy Endocrine : No Polyuria, No Polydipsia, No Temperature Intolerance [facility] Past Medical History Medical History Asthma Cirrhosis COPD (chronic obstructive pulmonary disease) Diabetes mellitus Esophageal varices Esophageal varices Essential hypertension Hepatitis C Hyperlipidemia Hypertension Liver cirrhosis [facility] current use of insulin Pancreatitis Peripheral neuropathy Polysubstance abuse Portal hypertension Proteinuria Splenomegaly Tobacco abuse Type 2 diabetes mellitus with hyperglycemia Type 2 diabetes mellitus with other diabetic kidney complication Surgical History History of esophagogastroduodenoscopy (EGD) Hx of colonoscopy Family History Family History Mother Diabetes Paternal Uncle Diabetes Stomach cancer Maternal Uncle Diabetes Father Respiratory care problem Coronary artery disease Brother Coronary artery disease Social History Social History Household Members: None Housing: Apartment Alcohol intake: former Patient Tobacco Use Status: Former Tobacco user Tobacco use type: Cigarette Smoked in Last 30 Days: No Use of substances other than those prescribed or required for medical reasons: No Advance Directives: No Advance Directives Information Provided: No service: No Current occupational status: retired Physical Exam ED Vital Signs: Vital Signs - 24 hr 06/27/22 16:39 06/27/22 17:47 06/27/22 20:00 Temperature 98.1 F 97.7 F 97.7 F Pulse Rate 65 65 69 Respiratory Rate 18 16 16 Blood Pressure 123/63 131/64 109/56 L Pulse Oximetry 99 98 98 Oxygen Delivery Method Room Air Room Air Room Air 06/27/22 21:31 Temperature 97.7 F Pulse Rate 70 Respiratory Rate 16 Blood Pressure 91/54 L Pulse Oximetry 95 Oxygen Delivery Method Room Air BMI result Body Mass Index 24.9 Const Other: Appearance: Alert. Oriented X3. Ill-appearing, very uncomfortable Eyes: Pupils equal, round and reactive to light. ENT: Pharynx normal. Neck: Normal inspection. Neck supple. No lymph nodes noted. No crepitus CVS: Normal heart rate and rhythm. Pulses normal. Normal S1 and S2 Respiratory: No respiratory distress. Breath sounds normal. No Wheezing. No rales Abdomen: Pain in the right upper quadrant, no rigidity, moderate distension, no rebound or guarding Skin: Skin warm and dry. Pale Extremities: No lower extremity edema. No Lacerations. No Rash Neuro: Oriented X 3. No motor deficit. No sensory deficit. Moving all extremities. No slurred speech. CN 2 through 12 grossly intact Psych: calm, cooperative, normal affect Course Course Course Narrative: -patient has specifically pain in the right upper quadrant, not diffuse. SBP not strongly suspected. Patient was given empiric antibiotics. Sepsis not suspected. -undress CT scan of abdomen, seems that there is a new patchy hyperdense hemorrhage with RUTH omental fat, and blood fluid level is visible within the pelvis. Per radiologist's recommendation, we will obtain a CT were contrast can be using the arterial and the venous stasis to help determine the source of bleeding. -at this time, 22:20, patient states that he feels much better, at this time he says that he does not require any more pain medication. -CTA of abdomen pending. Is very likely that patient will need to be admitted. -lactic acid elevation secondary to hepatic disease, sepsis not suspected -repeat chemistry, and H&H pending. -sign-out given to Dr. Dumont Medical Decision Making Lab Data 06/27/22 17:37 06/27/22 17:37 Labs: Lab Results 06/27/22 06/27/22 06/27/22 Range/Units 17:36 17:36 17:37 WBC 11.6 H (4.8-10.8) X10*3/uL RBC 3.76 L (4.60-5.80) X10*6/uL Hgb 11.8 L (14.0-18.0) g/dl Hct 35.0 L (42.0-52.0) % MCV 93.1 (80.0-98.0) fL MCH 31.4 (27.0-33.0) pg MCHC 33.7 (31.0-36.0) g/dl RDW 16.3 H (11.0-16.0) % Plt Count 268 D (160-400) X10*3/uL MPV 11.1 (9.4-12.4) fL Immature Gran % (Auto) 1.2 H (0.0-0.4) % Neut % (Auto) 83.7 H (45-73) % Lymph % (Auto) 8.7 L (20-40) % Smith % (Auto) 5.4 (2-11) % Eos % (Auto) 0.6 (0-4) % Baso % (Auto) 0.4 (0-2) % Lymph # (Auto) 1.0 L (1.2-4.9) X10*3/uL Smith # (Auto) 0.6 (0.1-1.2) X10*3/uL Eos # (Auto) 0.1 (0.0-0.4) X10*3/uL Baso # (Auto) 0.1 (0.0-0.2) X10*3/uL Abs Immat Gran (auto) 0.14 H (0.00-0.03) X10*3/uL Absolute Neuts (auto) 9.7 H (2.0-8.3) x10*3/uL Absolute Nucleated RBC 0.000 (0.0-0.012) X10*3/uL Nucleated RBC % (auto) 0.0 (0.0-0.2) /100WBC PT (10.0-13.1) SEC INR (0.9-1.1) Sodium (135-145) mmol/L Potassium (3.3-5.1) mmol/L Chloride (96-108) mmol/L Carbon Dioxide (22-29) mmol/L Anion Gap (12-20) BUN (9-16) mg/dL Creatinine (0.5-1.4) mg/dL Estim Creat Clear Calc Estimated GFR POC Glucose (60-115) mg/dL Random Glucose (60-115) mg/dL Lactic Acid 2.4 H* (0.5-2.0) mmol/L Lactic Acid F/U @ 2Hr (0.5-2.0) mmol/L Calcium (8.4-10.2) mg/dL Magnesium (1.6-2.6) mg/dL Total Bilirubin (0.0-1.0) mg/dL Direct Bilirubin (0.0-0.5) mg/dL AST (5-37) U/L ALT (0-40) U/L Alkaline Phosphatase (39-117) U/L Ammonia 39 (13-55) umol/L Troponin I High Sens (<3.5-35.0) ng/L B-Natriuretic Peptide (<100) pg/mL Total Protein (6.5-8.0) g/dL Albumin (3.5-5.0) g/dL Lipase (8-78) U/L Ethyl Alcohol mg/dL 06/27/22 06/27/22 06/27/22 Range/Units 17:37 17:37 17:37 WBC (4.8-10.8) X10*3/uL RBC (4.60-5.80) X10*6/uL Hgb (14.0-18.0) g/dl Hct (42.0-52.0) % MCV (80.0-98.0) fL MCH (27.0-33.0) pg MCHC (31.0-36.0) g/dl RDW (11.0-16.0) % Plt Count (160-400) X10*3/uL MPV (9.4-12.4) fL Immature Gran % (Auto) (0.0-0.4) % Neut % (Auto) (45-73) % Lymph % (Auto) (20-40) % Smith % (Auto) (2-11) % Eos % (Auto) (0-4) % Baso % (Auto) (0-2) % Lymph # (Auto) (1.2-4.9) X10*3/uL Smith # (Auto) (0.1-1.2) X10*3/uL Eos # (Auto) (0.0-0.4) X10*3/uL Baso # (Auto) (0.0-0.2) X10*3/uL Abs Immat Gran (auto) (0.00-0.03) X10*3/uL Absolute Neuts (auto) (2.0-8.3) x10*3/uL Absolute Nucleated RBC (0.0-0.012) X10*3/uL Nucleated RBC % (auto) (0.0-0.2) /100WBC PT (10.0-13.1) SEC INR (0.9-1.1) Sodium 133 L (135-145) mmol/L Potassium 5.9 H D (3.3-5.1) mmol/L Chloride 104 (96-108) mmol/L Carbon Dioxide 21 L (22-29) mmol/L Anion Gap 14 (12-20) BUN 31 H (9-16) mg/dL Creatinine 1.44 H (0.5-1.4) mg/dL Estim Creat Clear Calc 45.1 Estimated GFR 50 POC Glucose (60-115) mg/dL Random Glucose 245 H (60-115) mg/dL Lactic Acid (0.5-2.0) mmol/L Lactic Acid F/U @ 2Hr (0.5-2.0) mmol/L Calcium 9.1 D (8.4-10.2) mg/dL Magnesium 1.7 (1.6-2.6) mg/dL Total Bilirubin 5.6 H (0.0-1.0) mg/dL Direct Bilirubin 2.6 H (0.0-0.5) mg/dL AST 208 H (5-37) U/L ALT 112 H (0-40) U/L Alkaline Phosphatase 527 H (39-117) U/L Ammonia (13-55) umol/L Troponin I High Sens 3.6 (<3.5-35.0) ng/L B-Natriuretic Peptide (<100) pg/mL Total Protein 6.7 (6.5-8.0) g/dL Albumin 2.3 L (3.5-5.0) g/dL Lipase 44 (8-78) U/L Ethyl Alcohol < 10 Cancelled mg/dL 06/27/22 06/27/22 06/27/22 Range/Units 17:37 17:37 20:42 WBC (4.8-10.8) X10*3/uL RBC (4.60-5.80) X10*6/uL Hgb (14.0-18.0) g/dl Hct (42.0-52.0) % MCV (80.0-98.0) fL MCH (27.0-33.0) pg MCHC (31.0-36.0) g/dl RDW (11.0-16.0) % Plt Count (160-400) X10*3/uL MPV (9.4-12.4) fL Immature Gran % (Auto) (0.0-0.4) % Neut % (Auto) (45-73) % Lymph % (Auto) (20-40) % Smith % (Auto) (2-11) % Eos % (Auto) (0-4) % Baso % (Auto) (0-2) % Lymph # (Auto) (1.2-4.9) X10*3/uL Smith # (Auto) (0.1-1.2) X10*3/uL Eos # (Auto) (0.0-0.4) X10*3/uL Baso # (Auto) (0.0-0.2) X10*3/uL Abs Immat Gran (auto) (0.00-0.03) X10*3/uL Absolute Neuts (auto) (2.0-8.3) x10*3/uL Absolute Nucleated RBC (0.0-0.012) X10*3/uL Nucleated RBC % (auto) (0.0-0.2) /100WBC PT 13.0 (10.0-13.1) SEC INR 1.1 (0.9-1.1) Sodium (135-145) mmol/L Potassium (3.3-5.1) mmol/L Chloride (96-108) mmol/L Carbon Dioxide (22-29) mmol/L Anion Gap (12-20) BUN (9-16) mg/dL Creatinine (0.5-1.4) mg/dL Estim Creat Clear Calc Estimated GFR POC Glucose (60-115) mg/dL Random Glucose (60-115) mg/dL Lactic Acid (0.5-2.0) mmol/L Lactic Acid F/U @ 2Hr 2.1 H* (0.5-2.0) mmol/L Calcium (8.4-10.2) mg/dL Magnesium (1.6-2.6) mg/dL Total Bilirubin (0.0-1.0) mg/dL Direct Bilirubin (0.0-0.5) mg/dL AST (5-37) U/L ALT (0-40) U/L Alkaline Phosphatase (39-117) U/L Ammonia (13-55) umol/L Troponin I High Sens (<3.5-35.0) ng/L B-Natriuretic Peptide 306 H (<100) pg/mL Total Protein (6.5-8.0) g/dL Albumin (3.5-5.0) g/dL Lipase (8-78) U/L Ethyl Alcohol mg/dL 06/27/22 Range/Units 21:54 WBC (4.8-10.8) X10*3/uL RBC (4.60-5.80) X10*6/uL Hgb (14.0-18.0) g/dl Hct (42.0-52.0) % MCV (80.0-98.0) fL MCH (27.0-33.0) pg MCHC (31.0-36.0) g/dl RDW (11.0-16.0) % Plt Count (160-400) X10*3/uL MPV (9.4-12.4) fL Immature Gran % (Auto) (0.0-0.4) % Neut % (Auto) (45-73) % Lymph % (Auto) (20-40) % Smith % (Auto) (2-11) % Eos % (Auto) (0-4) % Baso % (Auto) (0-2) % Lymph # (Auto) (1.2-4.9) X10*3/uL Smith # (Auto) (0.1-1.2) X10*3/uL Eos # (Auto) (0.0-0.4) X10*3/uL Baso # (Auto) (0.0-0.2) X10*3/uL Abs Immat Gran (auto) (0.00-0.03) X10*3/uL Absolute Neuts (auto) (2.0-8.3) x10*3/uL Absolute Nucleated RBC (0.0-0.012) X10*3/uL Nucleated RBC % (auto) (0.0-0.2) /100WBC PT (10.0-13.1) SEC INR (0.9-1.1) Sodium (135-145) mmol/L Potassium (3.3-5.1) mmol/L Chloride (96-108) mmol/L Carbon Dioxide (22-29) mmol/L Anion Gap (12-20) BUN (9-16) mg/dL Creatinine (0.5-1.4) mg/dL Estim Creat Clear Calc Estimated GFR POC Glucose 158 H (60-115) mg/dL Random Glucose (60-115) mg/dL Lactic Acid (0.5-2.0) mmol/L Lactic Acid F/U @ 2Hr (0.5-2.0) mmol/L Calcium (8.4-10.2) mg/dL Magnesium (1.6-2.6) mg/dL Total Bilirubin (0.0-1.0) mg/dL Direct Bilirubin (0.0-0.5) mg/dL AST (5-37) U/L ALT (0-40) U/L Alkaline Phosphatase (39-117) U/L Ammonia (13-55) umol/L Troponin I High Sens (<3.5-35.0) ng/L B-Natriuretic Peptide (<100) pg/mL Total Protein (6.5-8.0) g/dL Albumin (3.5-5.0) g/dL Lipase (8-78) U/L Ethyl Alcohol mg/dL Medications Administered Discontinued Medications Generic Name Dose Route Start Last Admin Trade Name Freq PRN Reason Stop Dose Admin Hydromorphone HCl 1 mg 06/27/22 18:32 06/27/22 19:27 Hydromorphone Hcl 1 Mg/Ml Syringe IVPUSH 06/27/22 18:33 1 mg ONCE ONE Administration Protocol Sodium Chloride 1,000 mls @ 999 mls/hr 06/27/22 17:09 06/27/22 19:34 Ns IVCONT 06/27/22 18:09 Infused .Q1H1M ONE Infusion Calcium Gluconate 2 gm in 100 mls @ 50 mls/hr 06/27/22 19:12 06/27/22 19:27 Calcium Gluconate IV 06/27/22 21:11 50 mls/hr ONCE ONE Administration Insulin Human Regular 5 unit 06/27/22 20:18 06/27/22 20:34 Insulin Regular, Human 100 Unit/Ml 3 Ml Vial IVPUSH 06/27/22 20:19 5 unit ONCE ONE Administration Iohexol 100 ml 06/27/22 22:09 06/27/22 22:09 Iohexol 350 Mg/Ml 100 Ml Infus..Btl IV 06/27/22 22:10 80 ml ONCE ONE Administration Morphine Sulfate 4 mg 06/27/22 17:16 06/27/22 17:39 Morphine Sulfate 4 Mg/Ml Cartridge IVPUSH 06/27/22 17:17 4 mg ONCE ONE Administration Protocol Ondansetron HCl 4 mg 06/27/22 17:16 06/27/22 17:40 Ondansetron Hcl 4 Mg/2 Ml Vial IVPUSH 06/27/22 17:17 4 mg ONCE ONE Administration Sodium Zirconium Cyclosilicate 10 gm 06/27/22 19:12 06/27/22 19:27 Sodium Zirconium Cyclosilicate 10 Gm Powd.Pack PO 06/27/22 19:13 10 gm ONCE ONE Administration Critical Care Time Critical Care Time Critical Care Time: Yes Total Critical Care Time: 60 Attestation: I have personally provided critical care time. Time includes review of lab data, radiology results, discussion with consultants, and monitoring for potential decompensation. Intervention performed as documented. Discharge Plan Discharge Clinical Impression: Abdominal pain, acute, right upper quadrant, Acute hyperkalemia Patient Disposition: Still a Patient Prescriptions: No Action (DME) pen needle, diabetic [BD Ultra-Fine Jennyfer Pen Needle] 32 gauge x 5/32 needle See Rx Instructions .ROUTE .MEDSUPPLY Qty: 60 11RF Rx Instructions: As directed twice a day FreeStyle Lite Strips Strip 1 strip miscellaneous QID Qty: 150 11RF (DME) lancets [TRUEplus Lancets] 28 gauge misc See Rx Instructions .ROUTE .MEDSUPPLY Qty: 100 11RF Rx Instructions: As directed four times a day spironolactone 100 mg tablet 100 mg PO DAILY Qty: 30 2RF albuterol sulfate [ProAir HFA] 90 mcg/actuation HFA aerosol inhaler 2 puff INHALATION Q4-6H PRN (Reason: Shortness Of Breath Or Wheezing) ondansetron 8 mg Tablet,Disintegrating 8 mg PO Q8H PRN (Reason: Nausea) Qty: 60 3RF omeprazole 20 mg Capsule,Delayed Release(Dr/Ec) 20 mg PO BID Qty: 60 3RF amlodipine 5 mg tablet 1 tab PO DAILY nadolol 40 mg tablet 20 mg PO DAILY terbinafine HCl [Antifungal (terbinafine)] 1 % cream 1 appl topical BID 30 Days Qty: 15 1RF Rx Instructions: Use for 14 days. insulin aspart U-100 100 unit/mL (3 mL) insulin pen 6 unit subcut TID losartan 100 mg tablet 100 mg PO DAILY lactulose 10 gram/15 mL solution 15 ml PO BID PRN (Reason: constipation) insulin degludec [Tresiba FlexTouch U-200] 200 unit/mL (3 mL) insulin pen 100 unit subcut BEDTIME
[2022-06-27] MEDS: Morphine Sulfate 4 MG/ML CARTRIDGE IVPUSH (17:39)
[2022-06-27] MEDS: 0.9 % Sodium Chloride 1,000 ML 999 ML IVCONT (17:39)
[2022-06-27] MEDS: ondansetron HCL 4 MG/2 ML VIAL IVPUSH (17:40)
[2022-06-27 17:43] LABS: MANUAL DIFF FLAG NO
[2022-06-27 17:47] VITALS: BP 131/64; PULSE 65; RESP 16; TEMP 36.5; O2SAT 98
--- NOTE | 2022-06-27 17:48 | MHC.EDTECH ---
pt was change into hospital attire ,ekg done and was read by provider ,blood drawn including blood culture and lactic acid all sent to lab .
[2022-06-27 17:50] LABS: Basophils Absolute Auto 0.1 X10*3/uL (0.0-0.2); Basophils Percent Auto 0.4 % (0-2); Eosinophils Absolute Auto 0.1 X10*3/uL (0.0-0.4); Eosinophils Percent Auto 0.6 % (0-4); Hemoglobin 11.8 g/dl (14.0-18.0); Imm Gran Abs Auto 0.14 X10*3/uL (0.00-0.03); Imm Gran Pct Auto 1.2 % (0.0-0.4); Lymphocytes Percent Auto 8.7 % (20-40); Mean Corpuscular HGB Conc 33.7 g/dl (31.0-36.0); Mean Corpuscular Hemoglobin 31.4 pg (27.0-33.0); Mean Corpuscular Volume 93.1 fL (80.0-98.0); Mean Platelet Volume 11.1 fL (9.4-12.4); Monocytes Absolute Auto 0.6 X10*3/uL (0.1-1.2); Monocytes Percent Auto 5.4 % (2-11); Neutrophils Absolute Auto 9.7 x10*3/uL (2.0-8.3); Neutrophils Percent Auto 83.7 % (45-73); Platelet Count 268 X10*3/uL (160-400); Red Blood Count 3.76 X10*6/uL (4.60-5.80); Red Cell Distribution Width 16.3 % (11.0-16.0); White Blood Count 11.6 X10*3/uL (4.8-10.8)
[2022-06-27 17:51] LABS: INTERNATIONAL NORM RATIO 1.1 (0.9-1.1)
[2022-06-27 17:57] LABS: Ammonia 39 umol/L (13-55)
[2022-06-27 18:04] LABS: Lactic Acid 2.4 mmol/L (0.5-2.0)
[2022-06-27 18:10] LABS: B Type Natriuretic Peptide 306 pg/mL (<100)
[2022-06-27 18:11] LABS: Alanine Aminotransferase 112 U/L (0-40); Albumin Level 2.3 g/dL (3.5-5.0); Alkaline Phosphatase 527 U/L (39-117); Anion Gap 14 (12-20); Aspartate Amino Transferase 208 U/L (5-37); Bilirubin Direct 2.6 mg/dL (0.0-0.5); Bilirubin Total 5.6 mg/dL (0.0-1.0); Blood Urea Nitrogen 31 mg/dL (9-16); Calcium 9.1 mg/dL (8.4-10.2); Carbon Dioxide 21 mmol/L (22-29); Chloride 104 mmol/L (96-108); Creatinine Clr Calc Pharmacy 45.1; Estimated Glomerular Filt Rate 50; Ethanol < 10 mg/dL; Glucose Random 245 mg/dL (60-115); Lipase 44 U/L (8-78); Magnesium 1.7 mg/dL (1.6-2.6); Potassium 5.9 mmol/L (3.3-5.1); Sodium 133 mmol/L (135-145); Total Protein 6.7 g/dL (6.5-8.0)
[2022-06-27 18:12] LABS: Troponin-I High Sensitivity 3.6 ng/L (<3.5-35.0)
[2022-06-27] MEDS: Sodium Zirconium Cyclosilicate 10 GM POWD.PACK PO (19:27)
[2022-06-27] MEDS: Calcium Gluconate/NaCl,Iso-Osm 2 GM/100 ML PLAST..BAG IV (19:27)
[2022-06-27] MEDS: HYDROmorphone HCl 1 MG/ML SYRINGE IVPUSH (19:27)
[2022-06-27 19:41] LABS: Reflex Lactate? Lactic Acid Added
[2022-06-27 20:00] VITALS: BP 109/56; PULSE 69; RESP 16; TEMP 36.5; O2SAT 98
[2022-06-27] MEDS: Insulin Regular, Human 100 UNIT/ML 3 ML VIAL IVPUSH (20:34)
--- NOTE | 2022-06-27 20:43 | MHC.EDTECH ---
vitals sign taken and lactic acid drawn and sent to lab .
--- NOTE | 2022-06-27 21:00 | PC.NURSE ---
late entry- pt resting on stretcher at this time. pt calm and cooperative. pt medicated according to may.
[2022-06-27 21:11] LABS: ~Lactic Acid-LAB USE ONLY 2.1 mmol/L (0.5-2.0)
[2022-06-27 21:31] VITALS: BP 91/54; PULSE 70; RESP 16; TEMP 36.5; O2SAT 95
[2022-06-27 22:00] LABS: Glucose, Whole Blood 158 mg/dL (60-115)
[2022-06-27] MEDS: iohexoL 350 MG/ML 100 ML INFUS..BTL IV (22:09)
--- NOTE | 2022-06-27 22:26 | MHC.EDTECH ---
pt repeated blood drawn drawn and sent to lab .
[2022-06-27 22:27] VITALS: BP 104/58; PULSE 69; RESP 20; TEMP 36.4; O2SAT 98
[2022-06-27 22:38] LABS: Hematocrit 29.3 % (42.0-52.0); Hemoglobin 9.8 g/dl (14.0-18.0); Mean Corpuscular HGB Conc 33.4 g/dl (31.0-36.0); Mean Corpuscular Hemoglobin 31.5 pg (27.0-33.0); Mean Corpuscular Volume 94.2 fL (80.0-98.0); Mean Platelet Volume 11.2 fL (9.4-12.4); Platelet Count 194 X10*3/uL (160-400); Red Blood Count 3.11 X10*6/uL (4.60-5.80); Red Cell Distribution Width 16.3 % (11.0-16.0); White Blood Count 10.6 X10*3/uL (4.8-10.8)
[2022-06-27] MEDS: cefTRIAXone sodium 1 GM in 0.9 % Sodium Chloride 50 ML IV ×2 (22:45→23:42)
[2022-06-27 22:46] LABS: Reflex Lactate? 2 Y
[2022-06-27 22:46] LABS: Anion Gap 12 (12-20); Blood Urea Nitrogen 34 mg/dL (9-16); Calcium 8.6 mg/dL (8.4-10.2); Carbon Dioxide 21 mmol/L (22-29); Chloride 107 mmol/L (96-108); Creatinine Clr Calc Pharmacy 48.8; Estimated Glomerular Filt Rate 55; Glucose Random 169 mg/dL (60-115); Potassium 5.6 mmol/L (3.3-5.1); Sodium 134 mmol/L (135-145)
[2022-06-27 23:05] LABS: Appearance Urine Cloudy; Bacteria Urine None Seen (None Seen); Color Urine Dark Yellow; Glucose Urine UA 100 mg/dL (Negative); Leukocyte Esterase Urine Small (1+) (Negative); Nitrite Urine Positive (Negative); UACC Culture Trigger YES; UMIC TRIGGER UACC YES; Urine Blood Negative (Negative); Urine Ketones Negative (Negative); Urine Protein 30 (1+) mg/dL (Neg-Trace); WBC Urine 0-5 /HPF (0-5)
--- NOTE | 2022-06-27 23:05 | PM.IMHP ---
History of Present Illness Date of Service: 06/27/22 Chief Complaint: Abdominal Pain This is a 62-year-old male with pertinent history of 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, hepatocellular carcinoma with metastasis, essential hypertension, mixed hyperlipidemia, insulin-dependent diabetes mellitus who presents to the emergency department for evaluation of abdominal discomfort. Patient states he started having abdominal discomfort on the day of presentation which was constant, nonradiating, generalized and without any relieving factors. Patient states that he felt that his abdomen was getting tense. He is on chemotherapy for advanced hepatocellular carcinoma and followed by Dr. Machado. He does have a history of esophageal varices. Patient denies nausea, vomiting, hematochezia, melena. He denies fever, chills, shortness of breath, chest pain, palpitations, changes in urinary habits. In the emergency department, imaging with concerning for hemorrhage at anterior mesentery and large volume ascites Review of Systems Constitutional: Constitutional: Reports fatigue, Reports lethargy and Reports malaise Cardiovascular: Cardiovascular: Reports no additional cardiovascular complaints Respiratory: Respiratory: Reports no additional respiratory complaints Gastrointestinal: Gastrointestinal: Reports abdominal pain Genitourinary: Genitourinary: Reports no additional male genitourinary complaints Endocrine: Endocrine: Reports fatigue FORMERLY [facility], 1928–1983 Medical History Asthma Cirrhosis COPD (chronic obstructive pulmonary disease) Diabetes mellitus Esophageal varices Esophageal varices Essential hypertension Hepatitis C Hyperlipidemia Hypertension Liver cirrhosis detention current use of insulin Pancreatitis Peripheral neuropathy Polysubstance abuse Portal hypertension Proteinuria Splenomegaly Tobacco abuse Type 2 diabetes mellitus with hyperglycemia Type 2 diabetes mellitus with other diabetic kidney complication Family History Mother Diabetes Paternal Uncle Diabetes Stomach cancer Maternal Uncle Diabetes Father Respiratory care problem Coronary artery disease Brother Coronary artery disease Surgical History History of esophagogastroduodenoscopy (EGD) Hx of colonoscopy Social History Household Members: None Housing: Apartment Alcohol intake: former Patient Tobacco Use Status: Former Tobacco user Tobacco use type: Cigarette Smoked in Last 30 Days: No Use of substances other than those prescribed or required for medical reasons: No Advance Directives: No Advance Directives Information Provided: No service: No Current occupational status: retired Meds Allergies Allergy/AdvReac Type Severity Reaction Status Date / Time lisinopril [LISINOPRIL] Allergy Intermediate Shortness Verified 05/23/22 11:40 of Breath Active Medications: Current Medications Octreotide Acetate 500 mcg/ (Sodium Chloride) 501 mls @ 50.1 mls/hr IVCONT .Q10H [facility] Home Medications Medication Instructions Recorded Confirmed Last Taken Type nadolol 40 mg tablet 20 mg PO DAILY 12/25/19 05/23/22 Unknown History albuterol sulfate 90 mcg/actuation 2 puff inhalation Q4-6H PRN 03/01/22 05/23/22 Unknown History aerosol inhaler (ProAir HFA) Shortness Of Breath Or Wheezing insulin aspart U-100 100 unit/mL 6 unit subcut TID 03/20/22 05/23/22 Unknown History (3 mL) subcutaneous pen insulin degludec 200 unit/mL (3 100 unit subcut BEDTIME 03/20/22 05/23/22 Unknown History mL) subcutaneous pen (Tresiba FlexTouch U-200 insulin) lactulose 10 gram/15 mL oral 15 ml PO BID PRN constipation 03/20/22 05/23/22 Unknown History solution losartan 100 mg tablet 100 mg PO DAILY 03/20/22 05/23/22 Unknown History amlodipine 5 mg tablet 1 tab PO DAILY 05/23/22 05/23/22 Unknown History Physical Exam Vital Signs and Narrative: Vital Signs: Last Vital Signs Temp 97.6 F 06/27/22 22:27 Pulse 69 06/27/22 22:27 Resp 20 06/27/22 22:27 BP 104/58 L 06/27/22 22:27 Pulse Ox 98 06/27/22 22:27 O2 Del Method Room Air 06/27/22 22:27 BMI result Body Mass Index 24.9 Middle-aged male lying in bed in mild distress Neck supple, no JVD Regular rate and rhythm, S1-S2 heard Decreased breath sounds at bases Abdomen form with generalized tenderness, no guarding, no rigidity, no rebound tenderness Patient is awake, alert and oriented to self, place, time and person ; no focal motor deficit Psych: Normal mood No pedal edema Results Labs 06/27/22 17:37 06/27/22 22:25 Labs: Laboratory Results - last 24 hr 06/27/22 06/27/22 06/27/22 17:36 17:36 17:37 MCV 93.1 MCH 31.4 MCHC 33.7 RDW 16.3 H Plt Count 268 D MPV 11.1 Immature Gran % (Auto) 1.2 H Neut % (Auto) 83.7 H Lymph % (Auto) 8.7 L Josephine % (Auto) 5.4 Eos % (Auto) 0.6 Baso % (Auto) 0.4 Lymph # (Auto) 1.0 L Josephine # (Auto) 0.6 Eos # (Auto) 0.1 Baso # (Auto) 0.1 Abs Immat Gran (auto) 0.14 H Absolute Neuts (auto) 9.7 H Absolute Nucleated RBC 0.000 Nucleated RBC % (auto) 0.0 PT INR Anion Gap Estim Creat Clear Calc Estimated GFR POC Glucose Random Glucose Lactic Acid 2.4 H* Lactic Acid F/U @ 2Hr Calcium Magnesium Total Bilirubin Direct Bilirubin AST ALT Alkaline Phosphatase Ammonia 39 Troponin I High Sens B-Natriuretic Peptide Total Protein Albumin Lipase Ethyl Alcohol 06/27/22 06/27/22 06/27/22 17:37 17:37 17:37 MCV MCH MCHC RDW Plt Count MPV Immature Gran % (Auto) Neut % (Auto) Lymph % (Auto) Josephine % (Auto) Eos % (Auto) Baso % (Auto) Lymph # (Auto) Josephine # (Auto) Eos # (Auto) Baso # (Auto) Abs Immat Gran (auto) Absolute Neuts (auto) Absolute Nucleated RBC Nucleated RBC % (auto) PT INR Anion Gap 14 Estim Creat Clear Calc 45.1 Estimated GFR 50 POC Glucose Random Glucose 245 H Lactic Acid Lactic Acid F/U @ 2Hr Calcium 9.1 D Magnesium 1.7 Total Bilirubin 5.6 H Direct Bilirubin 2.6 H AST 208 H ALT 112 H Alkaline Phosphatase 527 H Ammonia Troponin I High Sens 3.6 B-Natriuretic Peptide Total Protein 6.7 Albumin 2.3 L Lipase 44 Ethyl Alcohol < 10 Cancelled 06/27/22 06/27/22 06/27/22 17:37 17:37 20:42 MCV MCH MCHC RDW Plt Count MPV Immature Gran % (Auto) Neut % (Auto) Lymph % (Auto) Josephine % (Auto) Eos % (Auto) Baso % (Auto) Lymph # (Auto) Josephine # (Auto) Eos # (Auto) Baso # (Auto) Abs Immat Gran (auto) Absolute Neuts (auto) Absolute Nucleated RBC Nucleated RBC % (auto) PT 13.0 INR 1.1 Anion Gap Estim Creat Clear Calc Estimated GFR POC Glucose Random Glucose Lactic Acid Lactic Acid F/U @ 2Hr 2.1 H* Calcium Magnesium Total Bilirubin Direct Bilirubin AST ALT Alkaline Phosphatase Ammonia Troponin I High Sens B-Natriuretic Peptide 306 H Total Protein Albumin Lipase Ethyl Alcohol 06/27/22 06/27/22 21:54 22:25 MCV MCH MCHC RDW Plt Count MPV Immature Gran % (Auto) Neut % (Auto) Lymph % (Auto) Josephine % (Auto) Eos % (Auto) Baso % (Auto) Lymph # (Auto) Josephine # (Auto) Eos # (Auto) Baso # (Auto) Abs Immat Gran (auto) Absolute Neuts (auto) Absolute Nucleated RBC Nucleated RBC % (auto) PT INR Anion Gap 12 Estim Creat Clear Calc 48.8 Estimated GFR 55 POC Glucose 158 H Random Glucose 169 H Lactic Acid Lactic Acid F/U @ 2Hr Calcium 8.6 Magnesium Total Bilirubin Direct Bilirubin AST ALT Alkaline Phosphatase Ammonia Troponin I High Sens B-Natriuretic Peptide Total Protein Albumin Lipase Ethyl Alcohol Imaging Radiologist's Impressions: Impressions Abdomen/Pelvis CT 06/27/22 19:24 IMPRESSION: * Limited noncontrast imaging examination of the abdomen and pelvis is performed. * Cirrhotic liver, varices and splenomegaly. There is heterogeneous hypodensity in the left hepatic lobe in region of the suspected hepatocellular carcinoma seen on prior CT imaging from 03/05/2022. * The large lymph node in the periportal region adjacent to the caudate lobe is stable compared to 03/05/2022 whereas the other suspected large upper abdominal lymph node has increased in size and exerts mass effect upon the adjacent stomach. * Moderate volume of ascitic fluid is present and there is new patchy hyperdense hemorrhage within omental fat, and blood-fluid level is visible within the pelvis. Follow-up CT angiography examination in arterial and venous phases might be able to help define any source of bleeding. * Significant enlargement of a lytic metastatic lesion involving right L3 lamina and spinous process. Assessment and Plan (1) HCC (hepatocellular carcinoma): Status: Chronic Plan This is a 62-year-old male with pertinent history of 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, hepatocellular carcinoma with metastasis, essential hypertension, mixed hyperlipidemia, insulin-dependent diabetes mellitus who presents to the emergency department for evaluation of abdominal discomfort. #. Intractable abdominal pain in a patient with metastatic hepatocellular carcinoma: Reviewed Dr. Machado's note from 06/06, his overall performance has declined and patient is becoming more frail. Discuss goals of care. Will consult Oncology to aid in discussion and initiating IV morphine p.r.n. #. Decompensated cirrhosis due to alcohol use and hepatitis-C: Obtaining IR guided therapeutic paracentesis. Initiating Rocephin empirically #. Questionable hemorrhage at anterior mesentery on imaging. Patient was previously reviewed at [facility] tumor board after large intraperitoneal hematoma was found on imaging. He was felt not to be candidate for surgical resection/chemo embolization/radioembolization or transplant. Continue goals of care discussion and consider hospice #. Insulin-dependent diabetes mellitus: Initiating Accu-Cheks with sliding scale insulin every 6 hours. Reduce home basal regimen #. Acute lactic acidosis: Due to liver disease. Not due to sepsis Med rec pending DVT prophylaxis: Mechanical Full code. Discussed with patient and he reinforced that he wants to remain full code. Continue discussions Time Spent With Patient Time: Total time managing care of this patient today ____ minutes. Quality Stroke Does the patient have a stroke diagnosis?: No VTE Prior VTE?: No VTE Risk Level:: Medical - moderate - high VTE Device Contraindication: N/A - Device Ordered VTE Drug Contraindication: Treatment Not Indicated
[2022-06-27 23:17] LABS: Amphetamine Screen Urine Not Detected (Not Detect); Barbiturates, Urine Not Detected (Not Detect); Benzodiazepines Screen Urine Not Detected (Not Detect); Cannabinoid Screen Urine Not Detected (Not Detect); Cocaine Screen Urine Not Detected (Not Detect); Fentanyl, urine Not Detected (Not Detect); Opiate Screen Urine POSITIVE (Not Detect); Phencyclidine Screen Urine Not Detected (Not Detect)
[2022-06-27] MEDS: Pantoprazole Sodium 40 MG/10 ML VIAL 80 MG IVPUSH (23:43)
[2022-06-28] VITALS (11 sets, daily range): BP systolic 74–140; BP diastolic 45–69; PULSE 64–74; RESP 12–67; TEMP 36.1–36.4; O2SAT 96–100
--- NOTE | 2022-06-28 00:03 | PC.NURSE ---
late entry- sports medicine physician made this rn aware of low bp. pt bp 74/45 HR 60. this rn made dr bacon aware. iv fluids initiated. pt medicated according to may. pt positioned on back in [place]. pt denies pain, sob, CP at this time
[2022-06-28] MEDS: 0.9 % Sodium Chloride 1,000 ML 999 ML IV (00:05)
[2022-06-28 00:07] LABS: ~Lactic Acid-LAB USE ONLY 2.1 mmol/L (0.5-2.0)
[2022-06-28] MEDS: Insulin Lispro 100 UNIT/ML 3 ML VIAL SUBCUT ×2 (00:18→21:11)
[2022-06-28] MEDS: Albumin Human 25 % 100 ML IV ×2 (00:18→01:45)
[2022-06-28 00:29] LABS: Glucose, Whole Blood 165 mg/dL (60-115)
[2022-06-28 00:30] LABS: Hematocrit 29.4 % (42.0-52.0); Hemoglobin 9.8 g/dl (14.0-18.0)
[2022-06-28 05:28] LABS: MANUAL DIFF FLAG NO
[2022-06-28 05:31] LABS: Basophils Percent Auto 0.3 % (0-2); Eosinophils Absolute Auto 0.1 X10*3/uL (0.0-0.4); Eosinophils Percent Auto 0.6 % (0-4); Hematocrit 26.2 % (42.0-52.0); Hemoglobin 8.8 g/dl (14.0-18.0); Imm Gran Abs Auto 0.07 X10*3/uL (0.00-0.03); Imm Gran Pct Auto 0.8 % (0.0-0.4); Lymphocytes Absolute Auto 0.9 X10*3/uL (1.2-4.9); Lymphocytes Percent Auto 10.6 % (20-40); Mean Corpuscular HGB Conc 33.6 g/dl (31.0-36.0); Mean Corpuscular Volume 95.3 fL (80.0-98.0); Mean Platelet Volume 11.1 fL (9.4-12.4); Monocytes Absolute Auto 0.8 X10*3/uL (0.1-1.2); Monocytes Percent Auto 9.4 % (2-11); Neutrophils Absolute Auto 6.8 x10*3/uL (2.0-8.3); Neutrophils Percent Auto 78.3 % (45-73); Platelet Count 118 X10*3/uL (160-400); Red Blood Count 2.75 X10*6/uL (4.60-5.80); Red Cell Distribution Width 16.4 % (11.0-16.0); White Blood Count 8.7 X10*3/uL (4.8-10.8)
[2022-06-28 05:52] LABS: Alanine Aminotransferase 84 U/L (0-40); Albumin Level 2.7 g/dL (3.5-5.0); Alkaline Phosphatase 364 U/L (39-117); Anion Gap 12 (12-20); Aspartate Amino Transferase 152 U/L (5-37); Bilirubin Total 4.7 mg/dL (0.0-1.0); Blood Urea Nitrogen 37 mg/dL (9-16); Calcium 8.8 mg/dL (8.4-10.2); Carbon Dioxide 22 mmol/L (22-29); Chloride 108 mmol/L (96-108); Estimated Glomerular Filt Rate 52; Glucose Random 165 mg/dL (60-115); Potassium 5.2 mmol/L (3.3-5.1); Sodium 137 mmol/L (135-145); Total Protein 5.7 g/dL (6.5-8.0)
[2022-06-28] MEDS: Pantoprazole Sodium 40 MG/10 ML VIAL IVPUSH ×2 (05:55→16:38)
[2022-06-28] MEDS: Morphine Sulfate 4 MG/ML CARTRIDGE IVPUSH (05:55)
--- NOTE | 2022-06-28 06:12 | PC.NURSE ---
pt medicated according to jordy pt provided with prn morphine 4mg for 09/24 pain
--- NOTE | 2022-06-28 06:14 | PC.NURSE ---
insulin lispro held per dr bacon. pt npo. charted against in may accordingly
[2022-06-28 06:18] LABS: Glucose, Whole Blood 154 mg/dL (60-115)
--- NOTE | 2022-06-28 07:42 | PC.NURSE ---
Pt alert and oriented, resp even and unlabored. Aware of plan for paracentesis with IR today. Resting quietly on stretcher, call aguilar within reach.
[2022-06-28] MEDS: 0.9 % Sodium Chloride Flush 3 ML SYRINGE IVFLUSH ×3 (07:43→21:12)
--- NOTE | 2022-06-28 08:44 | PHA.MEDREC ---
Addendum entered by Alejandra Bill eva 06/28/22 08:47: Patient also states his dose on Tresiba is 90 units at bedtime although claim history states 100 units. Original Note: Pharmacy Consult ? Medication Reconciliation Pharmacy has completed the medication reconciliation.Spoke to patient and confirmed med against claim history. He states he used to be on an additional blood pressure medication which he doesn't remember the name of but he ran out a while ago and hasn't been taking it.
--- OUTSIDE RECORDS SUMMARY | 2022-06-28 09:51 | XMS_ITS | Continuity of Care Document ---
Author Name Unknown Organization [facility] C ancer Care Address [address] [place] [address]- Care Team Providers Care Head Men'S Golf Coach Name Role Phone Not on Staff, PCP Primary Care Physician Unavail able Encounter [facility] [place] Date(s): 01/12/22 - 02/11/22 [facility] [address], [place] [address] Allergies, Adverse Reactions, Alerts Substance Reaction Severity Status lisinopril SHORTNESS OF BREATH Persistent Severe Act naun Immunizations Given and Recorded Vaccine Date Status Refusal Reason SARS-CoV-2 (COVID-19) mRNA-1273 vaccine 02/03/21 R ecorded SARS-CoV-2 (COVID-19) mRNA-1273 vaccine 05/31/20 R ecorded SARS-CoV-2 (COVID-19) mRNA-1273 vaccine 05/03/20 R ecorded Medications albuterol CFC free 90 mcg/inh inhalation aerosol 2 puffs, Inhalation, 4 times a day, PRN Wheezing/Shortness of Breath, 0 Refills, Maintenance Start Date: 01/31/12 Status: Ordered amLODIPine 5 mg oral tablet 1 tablet = 5 mg, By Mouth, Daily, # 30 tablet, 0 Refills, Maintenance, 01/01/22 0:04:00 EDT, Tablet, Partial fill upon patient request if the prescription is for a schedule II opioid drug. Start Date: 01/01/22 Status: Ordered Humalog Inj sliding scale, Subcutaneous Infusion, 3 times a day before meals, 0 Refills, Maintenance Start Date: 01/31/12 Status: Ordered losartan 100 mg oral tablet 1 tablet = 100 mg, By Mouth, Daily, # 30 tablet, 0 Refills, Maintenance, 01/01/22 0:03:00 EDT, Tablet, Partial fill upon patient request if the prescription is for a schedule II opioid drug. Start Date: 01/01/22 Status: Ordered nadolol 20 mg oral tablet 20 mg, 1, tablet, By Mouth, Daily, # 30 tablet, Refills 2, Tot. Refills 2, Maintenance, 01/21/18 12:17:58 EST, Do Not Route Start Date: 01/21/18 Status: Ordered pantoprazole 40 mg oral delayed release tablet See Instructions, 40 mg By Mouth 2 times a day for 2 weeks followed by 40mg once daily, # 60 tablet, 1 Refills, Maintenance, 01/21/18 12:06:11 EST, EC Tablet Start Date: 01/21/18 Status: Ordered Tresiba FlexTouch 100 units/mL subcutaneous solution See Instructions, 100 units once daily in the morning, 0 Refills, Maintenance, 01/17/18 17:50:07 EDT Start Date: 01/17/18 Status: Ordered Problem List Condition Confirmation Course Effective Dates Status H ealth Status Informant Liver cirrhosis Confirmed Active Diabetes mellitus Confirmed Active Esophageal varices Confirmed Active Hyperlipidemia Confirmed Active HTN (hypertension) Confirmed Active Peripheral neuropathy Confirmed Active Polysubstance abuse Confirmed Active Portal hypertension Confirmed Active Patient Care team information Care Team Personnel Name: Ledy Vivar RN Position: [facility] RN Member Role: Primary Care Nurse Name: Gisselle Murrell RN Position: S RN Member Role: Primary Care Nurse Name: Lesley Cooley RN Position: S RN Member Role: Primary Care Nurse Name: Not on Staff, PCP Position: [facility] Physician (General Medicine) Member Role: PCP Care Team Related Persons Name: DEMARIO MARTIN
--- OUTSIDE RECORDS SUMMARY | 2022-06-28 09:51 | XMS_ITS | Continuity of Care Document ---
Author Name Unknown Organization [facility] ter Address [address] [place] [address]- Care Team Providers Care Enrichment Specialist Name Role Phone Not on Staff, PCP Primary Care Physician Unavail able Encounter [facility] [place] Date(s): 01/12/22 - 03/04/[address] [address]- Attending Physician: Miri Delong MD Admitting Physician: Miri Delong MD Referring Physician: Miri Delong MD Allergies, Adverse Reactions, Alerts Substance Reaction Severity [...] Hyperlipidemia Confirmed Active HTN (hypertension) Confirmed Active Obese class I Confirmed Active Peripheral neuropathy Confirmed Active Polysubstance abuse Confirmed Active Portal hypertension Confirmed Active Patient Care team information Care Team Personnel Name: Ledy Vivar RN Position: [facility] RN Member Role: Primary Care Nurse Name: Gisselle Murrell RN Position: S RN Member Role: Primary Care Nurse Name: Lesley Cooley RN Position: S RN Member Role: Primary Care Nurse Name: Not on Staff, PCP Position: [facility] Physician (General Medicine) Member Role: PCP Care Team Related Persons Name: DEMARIO MARTIN
--- OUTSIDE RECORDS SUMMARY | 2022-06-28 09:51 | XMS_ITS | Continuity of Care Document ---
Author Name Unknown Organization [facility] C ancer Care Address [address] [place] [address]- Care Team Providers Care System Auditor Name Role Phone Not on Staff, PCP Primary Care Physician Unavail able Encounter [facility] [place] [place] Date(s): 01/04/22 - 04/25/22 [facility] [address] [place] [address]- Discharge Disposition: A-D/C Home Attending Physician: Karin GUNN, Chris Barros Admitting Physician: Sindi GUNN, Miri Referring Physician: Giuliana Leon MD Allergies, Adverse Reactions, Alerts Substance Reaction [...] abuse Confirmed Active Portal hypertension Confirmed Active Vital Signs Most recent to oldest [Reference Range]: 1 Height 163 cm (02/23/22 9:41 AM) Weight 84.4 kg (02/23/22 9:41 AM) Oxygen Saturation [94-100 %] 97 % (02/23/22 9:41 AM) Pulse Rate [55-90 bpm] 72 bpm (02/23/22 9:41 AM) Body Mass Index [18.5-24.99 kg/m2] 31.77 kg/m2 *>HHI* (02/23/22 9:41 AM) Blood Pressure [90-138/55-84 mm Hg] 141/ 70mm Hg *H* (02/23/22 9:41 AM) Temperature [96.8-100.4 DegF] 97.2 DegF (02/23/22 9:41 AM) Blood pressure sites Arm, left (02/23/22 9:41 AM) Temperature Route Oral (02/23/22 9:41 AM) Dry Weight 84.4 kg (02/23/22 9:41 AM) Weight Obtained Via Standing scale (02/23/22 9:41 AM) Dry Weight Obtained Via Standing scale (02/23/22 9:41 AM) Patient Care team information Care Team Personnel Name: Ledy Vivar RN Position: [facility] RN Member Role: Primary Care Nurse Name: Lesley Cooley RN Position: S RN Member Role: Primary Care Nurse Name: Not on Staff, PCP Position: [facility] Physician (General Medicine) Member Role: PCP Care Team Related Persons Name: DEMARIO MARTIN
--- OUTSIDE RECORDS SUMMARY | 2022-06-28 09:51 | XMS_ITS | Continuity of Care Document ---
Author Name Unknown Organization [facility] ter Address [address] [place] [address]- Care Team Providers Care Heater Mechanic Name Role Phone Carolyn GUNN, Giuliana Primary Care Physician Unava ilable Encounter [facility] Date(s): 12/31/21 - 01/03/[address] [address]- Encounter Diagnosis Liver mass(Final) - 12/31/21 Discharge Disposition: A-D/C Home Attending Physician: Ken He DO Admitting Physician: Mikel Sorto MD Referring Physician: Not on Staff, Referring MD Allergies, Adverse Reactions, Alerts Substance Reaction [...] abuse Confirmed Active Portal hypertension Confirmed Active Results Orders for Microbiology Reports Name Date Anaerobic Culture (ANAEROBIC CULTURE) Blood Culture 12/31/21 Blood Culture #2 12/31/21 Sterile Body Fluid Culture W/ Gram Smear 12/31/21 Microbiology Reports TEST:Anaerobic Culture STATUS:Unauthenticated BODY SITE: SOURCE:PARACE COLLECTED DATE/TIME:12/31/21 7:04 PM Anaerobic Culture SPECIMEN DESCRIPTION : PARACENTESIS FLUID SPECIAL REQUESTS : NONE CULTURE : NO ANAEROBES ISOLATED SO FAR. REPORT STATUS : PRELIMINARY REPORT TEST:Sterile Fluid Culture STATUS:Auth (Verified) BODY SITE: SOURCE:PARACE COLLECTED DATE/TIME:12/31/21 7:04 PM Sterile Fluid Culture SPECIMEN DESCRIPTION : PARACENTESIS FLUID SPECIAL REQUESTS : NONE GRAM STAIN : 3+ WHITE BLOOD CELLS NO ORGANISMS SEEN CULTURE : NO GROWTH 2 DAYS REPORT STATUS : FINAL 01/03/2022 TEST:Blood Culture STATUS:Unauthenticated BODY SITE: SOURCE:Blood COLLECTED DATE/TIME:12/31/21 6:50 PM Blood Culture SPECIMEN DESCRIPTION : BLOOD RT AC SPECIAL REQUESTS : NONE CULTURE : NO GROWTH 3 DAYS REPORT STATUS : PRELIMINARY REPORT TEST:Blood Culture, Second Order STATUS:Unauthenticated BODY SITE: SOURCE:Blood COLLECTED DATE/TIME:12/31/21 6:50 PM Blood Culture, Second Order SPECIMEN DESCRIPTION : BLOOD RT HAND SPECIAL REQUESTS : NONE CULTURE : NO GROWTH 3 DAYS REPORT STATUS : PRELIMINARY REPORT Vital Signs Most recent to oldest [Reference Range]: 1 2 3 Oxygen Saturation [94-100 %] 97 % (01/03/22 1:29 PM) 95 % (01/03/22 7:29 AM) 97 % (01/02/22 10:12 PM) Pulse Rate [55-90 bpm] 81 bpm (01/03/22 1:29 PM) 73 bpm (01/03/22 7:29 AM) 77 bpm (01/02/22 10:12 PM) Blood Pressure [90-138/55-84 mm Hg] 138/61mm Hg (01/03/22 1:29 PM) 152/59mm Hg *H* (01/03/22 7:29 AM) 151/64mm Hg *H* (01/02/22 10:12 PM) Respiratory Rate [16-30 br/min] 18 br/min (01/03/22 1:29 PM) 17 br/min (01/03/22 7:29 AM) 18 br/min (01/02/22 10:12 PM) Temperature [96.8-100.4 DegF] 98 DegF (01/03/22 1:29 PM) 98.2 DegF (01/03/22 7:29 AM) 97.7 DegF (01/02/22 10:12 PM) Mode of Delivery (Oxygen) Room air (01/03/22 1:29 PM) Room air (01/03/22 7:29 AM) Room air (01/02/22 10:12 PM) Blood pressure sites Arm, right (01/03/22 1:29 PM) Arm, left (01/03/22 7:29 AM) Arm, left (01/02/22 10:12 PM) Temperature Route Oral (01/03/22 1:29 PM) Oral (01/03/22 7:29 AM) Oral (01/02/22 10:12 PM) Patient Care team information Personnel Name: Giuliana Leon MD
--- OUTSIDE RECORDS SUMMARY | 2022-06-28 09:51 | XMS_ITS | Continuity of Care Document ---
Author Name Unknown Organization [facility] ancer Care Address [address] [place] [address]- Care Team Providers Care Parachute Panel Joiner Name Role Phone Not on Staff, PCP Primary Care Physician Unavail able [place] [facility] [place]04[place]22 - 02/03/22 [facility] [address] [place], [place] [address] [place] Attending Physician: Ricky Bernard Admitting Physician: AdmtrRicky Referring Physician: Admtr, Ar8 Allergies, Adverse Reactions, Alerts Substance Reaction Severity [...] Team Personnel Name: Ledy Vivar RN Position: [facility] RN Member Role: Primary Care Nurse Name: Gisselle Murrell RN Position: S RN Member Role: Primary Care Nurse Name: Lesley Cooley RN Position: S RN Member Role: Primary Care Nurse Name: Not on Staff, PCP Position: [facility] Physician (General Medicine) Member Role: PCP Care Team Related Persons Name: DEMARIO MARTIN
--- OUTSIDE RECORDS SUMMARY | 2022-06-28 09:51 | XMS_ITS | Continuity of Care Document ---
Author Name Unknown Organization [facility] C ancer Care Address [address] [place] [address]- Care Team Providers Care Sports Teacher Name Role Phone Not on Staff, PCP Primary Care Physician Unavail able [place] [facility] [place]/12[place]22 - 02/11/22 [facility] [address] [place], [place] [address] [place] Allergies, Adverse Reactions, Alerts Substance Reaction Severity [...] Team Personnel Name: Ledy Vivar RN Position: S RN Member Role: Primary Care Nurse Name: Gisselle Murrell RN Position: S RN Member Role: Primary Care Nurse Name: Lesley Cooley RN Position: S RN Member Role: Primary Care Nurse Name: Not on Staff, PCP Position: [facility] Physician (General Medicine) Member Role: PCP Care Team Related Persons Name: DEMARIO MARTIN
--- OUTSIDE RECORDS SUMMARY | 2022-06-28 09:51 | XMS_ITS | Continuity of Care Document ---
Author Name Unknown Organization [facility] ter Address [address] [place] [address]- Care Team Providers Care Pricing Consultant Name Role Phone Not on Staff, PCP Primary Care Physician Unavail able [place] [facility] [place](s[place] 01/05/22 - 02/25/[address] [address]- Attending Physician: Jake Chau MD Admitting Physician: Jake Chau MD Allergies, Adverse Reactions, Alerts Substance Reaction [...] Nurse Name: Not on Staff, PCP Position: [facility] Physician (General Medicine) Member Role: PCP Care Team Related Persons Name: DEMARIO MARTIN
[2022-06-28 11:39] LABS: Glucose, Whole Blood 142 mg/dL (60-115)
--- NOTE | 2022-06-28 13:02 | HO.PM.IMPN ---
Subjective Subjective Date of Service: 06/28/22 Interval History: Patient states pain is improved. States willing to stay for paracentesis however does not want to spend night Review of Systems Denies chest pain Denies shortness of breath Denies nausea vomiting diarrhea Denies fever chills Constitutional Constitutional: Reports fatigue, Reports lethargy and Reports malaise Cardiovascular Cardiovascular: Reports no additional cardiovascular complaints Respiratory Respiratory: Reports no additional respiratory complaints Gastrointestinal Gastrointestinal: Reports abdominal pain Genitourinary Genitourinary: Reports no additional male genitourinary complaints Endocrine Endocrine: Reports fatigue Physical Exam Vital Signs: Vital Signs: Last Vital Signs Temp 97.6 F 06/28/22 06:04 Pulse 64 06/28/22 11:34 Resp 12 06/28/22 11:34 BP 126/69 06/28/22 11:34 Pulse Ox 97 06/28/22 11:34 O2 Del Method Room Air 06/28/22 11:34 BMI result Body Mass Index 24.9 Const: Other: No acute distress Resp: Other: Clear to auscultation bilaterally no rales rhonchi or wheezes Cardio: Other: No S4; positive S1-S2; no S3 murmurs rubs or gallops GI: Other: Soft diffusely tender with quiet bowel sounds. No audible ascites Extrem: Other: No edema bilaterally Objective Data Active Medications Acetaminophen (Acetaminophen Supp 650 Mg Supp.Rect) 650 mg IN Q6H PRN PRN Reason: Pain, Mild (Pain Scale 1-3) Glucose (Glucose Gel 15 Gm Gel..Gram.) 15 gm PO Q15M PRN; Protocol PRN Reason: per Hypoglycemia Standing Ord. Ceftriaxone Sodium 2 gm/ (Sodium Chloride) 50 mls @ 100 mls/hr IV Q24H SUE Dextrose (D10) 250 mls @ 750 mls/hr IV Q15M PRN; Protocol PRN Reason: per Hypoglycemia Standing Ord. Insulin Human Lispro (Insulin Lispro 100 Unit/Ml 3 Ml Vial) 0.1 - 10 unit SUBCUT Q6H [facility]; Protocol Last Admin: 06/28/22 12:10 Dose: Not Given Documented By: ENE Non-Admin Reason: No Insulin Coverage Melatonin (Melatonin 3 Mg Tablet) 6 mg PO BEDTIME PRN PRN Reason: Insomnia Morphine Sulfate (Morphine Sulfate 4 Mg/Ml Cartridge) 4 mg IVPUSH Q4H PRN; Protocol PRN Reason: Pain, Severe (Pain Scale 7-10) Last Admin: 06/28/22 05:55 Dose: 4 mg Documented By: D[place]AS Ondansetron HCl (Ondansetron Hcl 4 Mg/2 Ml Vial) 4 mg IVPUSH Q8H PRN PRN Reason: Nausea and Vomiting Pantoprazole Sodium (Pantoprazole Sodium 40 Mg/10 Ml Vial) 40 mg IVPUSH BID@0630,1630 [facility] Last Admin: 06/28/22 05:55 Dose: 40 mg Documented By: D[place] Pharmacy Consult (Consult Rx Perform Med Rec) 1 each MISCELLANE ONCE PRN PRN Reason: Consult order Sodium Chloride (0.9 % Sodium Chloride Flush 3 Ml Syringe) 3 ml IVFLUSH QSHIFT [facility] Last Admin: 06/28/22 07:43 Dose: 3 ml Documented By: ENE Labs 06/28/22 05:18 06/28/22 05:18 Labs: Laboratory Results - last 24 hr 06/27/22 06/27/22 06/27/22 17:36 17:36 17:37 MCV 93.1 MCH 31.4 MCHC 33.7 RDW 16.3 H Plt Count 268 D MPV 11.1 Immature Gran % (Auto) 1.2 H Neut % (Auto) 83.7 H Lymph % (Auto) 8.7 L Davidson % (Auto) 5.4 Eos % (Auto) 0.6 Baso % (Auto) 0.4 Lymph # (Auto) 1.0 L Davidson # (Auto) 0.6 Eos # (Auto) 0.1 Baso # (Auto) 0.1 Abs Immat Gran (auto) 0.14 H Absolute Neuts (auto) 9.7 H Absolute Nucleated RBC 0.000 Nucleated RBC % (auto) 0.0 PT INR Anion Gap Estim Creat Clear Calc Estimated GFR POC Glucose Random Glucose Lactic Acid 2.4 H* Lactic Acid F/U @ 2Hr Lactic Acid F/U @ 4Hr Calcium Magnesium Total Bilirubin Direct Bilirubin AST ALT Alkaline Phosphatase Ammonia 39 Troponin I High Sens B-Natriuretic Peptide Total Protein Albumin Lipase Urine Color Urine Appearance Urine pH Ur Specific [place] Urine Protein Urine Glucose (UA) Urine Ketones Urine Blood Urine Nitrite Ur Leukocyte Esterase Urine RBC Urine WBC Ur Squamous Epith Cells Urine Bacteria Hyaline Casts Urine Opiates Screen Urine Fentanyl Screen Ur Barbiturates Screen Ur Phencyclidine Scrn Ur Amphetamines Screen U Benzodiazepines Scrn Urine Cocaine Screen U Marijuana (THC) Screen Ethyl Alcohol 06/27/22 06/27/22 06/27/22 17:37 17:37 17:37 MCV MCH MCHC RDW Plt Count MPV Immature Gran % (Auto) Neut % (Auto) Lymph % (Auto) Davidson % (Auto) Eos % (Auto) Baso % (Auto) Lymph # (Auto) Davidson # (Auto) Eos # (Auto) Baso # (Auto) Abs Immat Gran (auto) Absolute Neuts (auto) Absolute Nucleated RBC Nucleated RBC % (auto) PT INR Anion Gap 14 Estim Creat Clear Calc 45.1 Estimated GFR 50 POC Glucose Random Glucose 245 H Lactic Acid Lactic Acid F/U @ 2Hr Lactic Acid F/U @ 4Hr Calcium 9.1 D Magnesium 1.7 Total Bilirubin 5.6 H Direct Bilirubin 2.6 H AST 208 H ALT 112 H Alkaline Phosphatase 527 H Ammonia Troponin I High Sens 3.6 B-Natriuretic Peptide Total Protein 6.7 Albumin 2.3 L Lipase 44 Urine Color Urine Appearance Urine pH Ur Specific [place] Urine Protein Urine Glucose (UA) Urine Ketones Urine Blood Urine Nitrite Ur Leukocyte Esterase Urine RBC Urine WBC Ur Squamous Epith Cells Urine Bacteria Hyaline Casts Urine Opiates Screen Urine Fentanyl Screen Ur Barbiturates Screen Ur Phencyclidine Scrn Ur Amphetamines Screen U Benzodiazepines Scrn Urine Cocaine Screen U Marijuana (THC) Screen Ethyl Alcohol < 10 Cancelled 06/27/22 06/27/22 06/27/22 17:37 17:37 20:42 MCV MCH MCHC RDW Plt Count MPV Immature Gran % (Auto) Neut % (Auto) Lymph % (Auto) Davidson % (Auto) Eos % (Auto) Baso % (Auto) Lymph # (Auto) Davidson # (Auto) Eos # (Auto) Baso # (Auto) Abs Immat Gran (auto) Absolute Neuts (auto) Absolute Nucleated RBC Nucleated RBC % (auto) PT 13.0 INR 1.1 Anion Gap Estim Creat Clear Calc Estimated GFR POC Glucose Random Glucose Lactic Acid Lactic Acid F/U @ 2Hr 2.1 H* Lactic Acid F/U @ 4Hr Calcium Magnesium Total Bilirubin Direct Bilirubin AST ALT Alkaline Phosphatase Ammonia Troponin I High Sens B-Natriuretic Peptide 306 H Total Protein Albumin Lipase Urine Color Urine Appearance Urine pH Ur Specific [place] Urine Protein Urine Glucose (UA) Urine Ketones Urine Blood Urine Nitrite Ur Leukocyte Esterase Urine RBC Urine WBC Ur Squamous Epith Cells Urine Bacteria Hyaline Casts Urine Opiates Screen Urine Fentanyl Screen Ur Barbiturates Screen Ur Phencyclidine Scrn Ur Amphetamines Screen U Benzodiazepines Scrn Urine Cocaine Screen U Marijuana (THC) Screen Ethyl Alcohol 06/27/22 06/27/22 06/27/22 21:37 21:37 21:54 MCV MCH MCHC RDW Plt Count MPV Immature Gran % (Auto) Neut % (Auto) Lymph % (Auto) Davidson % (Auto) Eos % (Auto) Baso % (Auto) Lymph # (Auto) Davidson # (Auto) Eos # (Auto) Baso # (Auto) Abs Immat Gran (auto) Absolute Neuts (auto) Absolute Nucleated RBC Nucleated RBC % (auto) PT INR Anion Gap Estim Creat Clear Calc Estimated GFR POC Glucose 158 H Random Glucose Lactic Acid Lactic Acid F/U @ 2Hr Lactic Acid F/U @ 4Hr Calcium Magnesium Total Bilirubin Direct Bilirubin AST ALT Alkaline Phosphatase Ammonia Troponin I High Sens B-Natriuretic Peptide Total Protein Albumin Lipase Urine Color Dark Yellow Urine Appearance Cloudy Urine pH 5.0 Ur Specific [place] 1.020 Urine Protein 30 (1+) H Urine Glucose (UA) 100 H Urine Ketones Negative Urine Blood Negative Urine Nitrite Positive H Ur Leukocyte Esterase Small (1+) H Urine RBC 6-10 H Urine WBC 0-5 Ur Squamous Epith Cells 3-5 Urine Bacteria None Seen Hyaline Casts 6-10 Urine Opiates Screen POSITIVE H Urine Fentanyl Screen Not Detected Ur Barbiturates Screen Not Detected Ur Phencyclidine Scrn Not Detected Ur Amphetamines Screen Not Detected U Benzodiazepines Scrn Not Detected Urine Cocaine Screen Not Detected U Marijuana (THC) Screen Not Detected Ethyl Alcohol 06/27/22 06/27/22 06/27/22 22:25 22:25 23:38 MCV 94.2 MCH 31.5 MCHC 33.4 RDW 16.3 H Plt Count 194 D MPV 11.2 Immature Gran % (Auto) Neut % (Auto) Lymph % (Auto) Davidson % (Auto) Eos % (Auto) Baso % (Auto) Lymph # (Auto) Davidson # (Auto) Eos # (Auto) Baso # (Auto) Abs Immat Gran (auto) Absolute Neuts (auto) Absolute Nucleated RBC 0.000 Nucleated RBC % (auto) 0.0 PT INR Anion Gap 12 Estim Creat Clear Calc 48.8 Estimated GFR 55 POC Glucose Random Glucose 169 H Lactic Acid Lactic Acid F/U @ 2Hr Lactic Acid F/U @ 4Hr 2.1 H* Calcium 8.6 Magnesium Total Bilirubin Direct Bilirubin AST ALT Alkaline Phosphatase Ammonia Troponin I High Sens B-Natriuretic Peptide Total Protein Albumin Lipase Urine Color Urine Appearance Urine pH Ur Specific [place] Urine Protein Urine Glucose (UA) Urine Ketones Urine Blood Urine Nitrite Ur Leukocyte Esterase Urine RBC Urine WBC Ur Squamous Epith Cells Urine Bacteria Hyaline Casts Urine Opiates Screen Urine Fentanyl Screen Ur Barbiturates Screen Ur Phencyclidine Scrn Ur Amphetamines Screen U Benzodiazepines Scrn Urine Cocaine Screen U Marijuana (THC) Screen Ethyl Alcohol 06/28/22 06/28/22 06/28/22 00:11 05:18 05:18 MCV 95.3 MCH 32.0 MCHC 33.6 RDW 16.4 H Plt Count 118 L D MPV 11.1 Immature Gran % (Auto) 0.8 H Neut % (Auto) 78.3 H Lymph % (Auto) 10.6 L Davidson % (Auto) 9.4 Eos % (Auto) 0.6 Baso % (Auto) 0.3 Lymph # (Auto) 0.9 L Davidson # (Auto) 0.8 Eos # (Auto) 0.1 Baso # (Auto) 0.0 Abs Immat Gran (auto) 0.07 H Absolute Neuts (auto) 6.8 Absolute Nucleated RBC 0.000 Nucleated RBC % (auto) 0.0 PT INR Anion Gap 12 Estim Creat Clear Calc 47.0 Estimated GFR 52 POC Glucose 165 H Random Glucose 165 H Lactic Acid Lactic Acid F/U @ 2Hr Lactic Acid F/U @ 4Hr Calcium 8.8 Magnesium Total Bilirubin 4.7 H Direct Bilirubin AST 152 H ALT 84 H Alkaline Phosphatase 364 H Ammonia Troponin I High Sens B-Natriuretic Peptide Total Protein 5.7 L Albumin 2.7 L Lipase Urine Color Urine Appearance Urine pH Ur Specific [place] Urine Protein Urine Glucose (UA) Urine Ketones Urine Blood Urine Nitrite Ur Leukocyte Esterase Urine RBC Urine WBC Ur Squamous Epith Cells Urine Bacteria Hyaline Casts Urine Opiates Screen Urine Fentanyl Screen Ur Barbiturates Screen Ur Phencyclidine Scrn Ur Amphetamines Screen U Benzodiazepines Scrn Urine Cocaine Screen U Marijuana (THC) Screen Ethyl Alcohol 06/28/22 06/28/22 06:10 11:33 MCV MCH MCHC RDW Plt Count MPV Immature Gran % (Auto) Neut % (Auto) Lymph % (Auto) Davidson % (Auto) Eos % (Auto) Baso % (Auto) Lymph # (Auto) Davidson # (Auto) Eos # (Auto) Baso # (Auto) Abs Immat Gran (auto) Absolute Neuts (auto) Absolute Nucleated RBC Nucleated RBC % (auto) PT INR Anion Gap Estim Creat Clear Calc Estimated GFR POC Glucose 154 H 142 H Random Glucose Lactic Acid Lactic Acid F/U @ 2Hr Lactic Acid F/U @ 4Hr Calcium Magnesium Total Bilirubin Direct Bilirubin AST ALT Alkaline Phosphatase Ammonia Troponin I High Sens B-Natriuretic Peptide Total Protein Albumin Lipase Urine Color Urine Appearance Urine pH Ur Specific [place] Urine Protein Urine Glucose (UA) Urine Ketones Urine Blood Urine Nitrite Ur Leukocyte Esterase Urine RBC Urine WBC Ur Squamous Epith Cells Urine Bacteria Hyaline Casts Urine Opiates Screen Urine Fentanyl Screen Ur Barbiturates Screen Ur Phencyclidine Scrn Ur Amphetamines Screen U Benzodiazepines Scrn Urine Cocaine Screen U Marijuana (THC) Screen Ethyl Alcohol Assessment and Plan (1) HCC (hepatocellular carcinoma): Status: Chronic (2) Abdominal pain, acute, right upper quadrant: Status: Acute Plan This is a 62-year-old male with pertinent history of 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, hepatocellular carcinoma with metastasis, essential hypertension, mixed hyperlipidemia, insulin-dependent diabetes mellitus who presents to the emergency department for evaluation of abdominal discomfort; felt to have significant ascites admitted for tap 1.Intractable abdominal pain(metastatic hepatocellular carcinoma) -continue current pain regimen -patient firmed that he wants tap today; if cannot be done he wishes to go in return as outpatient 2,Decompensated cirrhosis due to alcohol use and hepatitis-C -empirical Rocephin -await paracentesis 3.Insulin-dependent diabetes mellitus -acceptable control on current therapies -adjust as indicated Mechanical Full code. Time Spent With Patient Time: Total time managing care of this patient today ____ minutes. Quality Stroke Does the patient have a stroke diagnosis?: No VTE Prior VTE?: No VTE Risk Level:: Medical - moderate - high VTE Device Contraindication: N/A - Device Ordered VTE Drug Contraindication: Treatment Not Indicated
[2022-06-28] MEDS: Lidocaine HCl 1 % MPF 5 ML VIAL SUBCUT (14:37)
--- NOTE | 2022-06-28 15:26 | MHC.CM.PN ---
CM met with Patient at bedside. Patient lives alone in an apartment and he used no DME [employer]. Patient receives his Chemo here at [facility] and home/resume said services is the goal. CM has initiated and will follow for dc planning. Patient received Moderna/Covid vax x3 and his new PCP(from the same practice where he had been going) is Dr. Isatu Pitt.
[2022-06-28 15:34] LABS: MN% 30.6 %; PMN% 69.4 %
[2022-06-28 15:56] LABS: RBC Peritoneal Fluid 1.195 X10*6/uL; WBC Peritoneal Fluid 2.555 X10*3/uL
[2022-06-28 16:30] LABS: Glucose, Whole Blood 141 mg/dL (60-115)
[2022-06-28 18:53] LABS: BF Shift QC OK YES; Man Diluent Bkgrd OK YES
[2022-06-28 18:54] LABS: Monocytes Peritoneal Fl 9 %; Neutrophils Peritoneal Fluid 79 %
[2022-06-28 18:55] LABS: Eosinophils Peritoneal Fl 2 %; Lymphocyte Peritoneal Fl 7 %; Other Peritioneal Fl 3 %
[2022-06-28 20:46] LABS: Glucose, Whole Blood 235 mg/dL (60-115)
[2022-06-28] MEDS: cefTRIAXone sodium 2 GM in 0.9 % Sodium Chloride 50 ML IV (22:42)
[2022-06-28 23:38] LABS: Glucose, Whole Blood 178 mg/dL (60-115)
[2022-06-29] VITALS: BP 116/59; PULSE 67; RESP 20; TEMP 36.3; O2SAT 98
[2022-06-29 04:00] VITALS: BP 117/65; PULSE 63; RESP 20; TEMP 36.3; O2SAT 97
[2022-06-29 04:12] LABS: Glucose, Whole Blood 132 mg/dL (60-115)
[2022-06-29] MEDS: Pantoprazole Sodium 40 MG/10 ML VIAL IVPUSH (06:05)
[2022-06-29 07:06] VITALS: BP 115/55; PULSE 56; RESP 16; TEMP 36; O2SAT 98
[2022-06-29 07:32] LABS: Albumin Peritoneal Fluid 1.1; Total Protein Peritoneal Fluid 2.6
[2022-06-29 07:33] LABS: Glucose Peritoneal Fluid 149
[2022-06-29 07:34] LABS: pH Peritoneal Fluid 7.27
[2022-06-29 07:39] LABS: Glucose, Whole Blood 106 mg/dL (60-115)
--- NOTE | 2022-06-29 08:14 | PM.HEMONCCN ---
Subjective - Subjective Chief complaint: Abdominal pain Patient: known to practice within the last 3 years Consult date: 06/29/22 Primary Care Provider: [facility] Medical Summary: Diagnosis: Hepatocellular carcinoma Patient presented with severe abdominal pain in December 2021 to [facility] emergency department. Admitted 01/01, imaging revealed a large 18 cm intraperitoneal hematoma secondary to hemorrhagic liver mass and ruptured hepatocellular carcinoma with differential diagnosis including variceal bleed. No history of bright red blood per rectum, melena or hematemesis. CT revealed multiple liver masses with arterial phase enhancement and delayed washout compatible with LI-RADS 5, largest lesion measuring 9.1 cm and caudate lobe, 4.8 cm in the left lobe, at least 3 lesions in right lobe and several other subcentimeter LI-RADS 5 far hyper enhancing lesions throughout. No pulmonary metastatic disease. Patient was presented/ reviewed at [facility] tumor board and deemed not a candidate for surgical resection. [facility] not to be candidate for chemoembolization/ radioembolization or transplant. CTA revealed stigmata of portal hypertension including splenomegaly, gastric and splenic varices and small volume ascites. AFP elevated at 4500. Patient declined all therapy and did not show up for any appointments until he presented to [facility] emergency department in December [address] chest/ abdomen and pelvis performed in February 2022 showed: Cirrhotic liver. Findings of portal hypertension including extensive varices and splenomegaly. 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 Further interval increase in central hepatic mass, more likely portal lymphadenopathy then caudate lobe mass, now measuring 6.0 x 5.5. Thereis an additional adjacent mass inseparable from the caudate lobe mass and the superior margin of the neck of the pancreas, measuring 7.6 x 6.2 cm. Favor additional portal lymphadenopathy rather than a pancreatic mass. There is likely metastatic lymphadenopathy in the posterior mediastinum to the right of the aorta. Additional retroperitoneal lymphadenopathy is presumably metastatic as well. HPI - Consult Narrative Reason for consult: Worsening metastatic cancer Narrative: Cm Zelaya is a 62 year old male with advanced/metastatic hepatocellular carcinoma currently receiving palliative immunotherapy who presented to the emergency department for abdominal discomfort. Patient states that he has had distention of his abdomen as well as constant generalized abdominal pain. He denies nausea or emesis. No fever or chills. He has had bilateral leg swelling which is constant. No significant headache or dizziness. He had imaging study, CT abdomen/pelvis with contrast which revealed area of omental hypodensity concerning for hemorrhage at the anterior mesentry. Cirrhotic liver with nodular contour, exophytic left hepatic lobe mass lesion which has increased in size. Large volume of abdominal ascites, increase in size of lymphadenopathy in the retroperitoneum increase in size of destructive lytic lesion in right L3 lamina consistent with metastatic disease. [facility] Medical History: Medical History (Last Reviewed 06/27/22 @ 23:33 by Isela Hernandez MD) Asthma Cirrhosis COPD (chronic obstructive pulmonary disease) Diabetes mellitus Esophageal varices Esophageal varices Essential hypertension Hepatitis C Hyperlipidemia Hypertension Liver cirrhosis detention current use of insulin Pancreatitis Peripheral neuropathy Polysubstance abuse Portal hypertension Proteinuria Splenomegaly Tobacco abuse Type 2 diabetes mellitus with hyperglycemia Type 2 diabetes mellitus with other diabetic kidney complication Family History: Family History (Last Reviewed 06/27/22 @ 23:33 by Isela Hernandez MD) Mother Diabetes Paternal Uncle Diabetes Stomach cancer Maternal Uncle Diabetes Father Respiratory care problem Coronary artery disease Brother Coronary artery disease Surgical History: Surgical History (Last Reviewed 06/27/22 @ 23:33 by Isela Hernandez MD) History of esophagogastroduodenoscopy (EGD) Hx of colonoscopy Social History: Social History (Last Reviewed 06/27/22 @ 23:33 by Isela Hernandez MD) Living Situation History: Household Members: None Housing: Apartment Alcohol History Details: 1. How often do you have a drink containing alcohol?: a. Never 3. How often do you have six or more drinks on one occasion?: a. Never AUDIT-C Alcohol total score: 0 Last Drank Other:: 30 years ago Currently Displaying Signs/Symptoms of Alcohol Withdrawal: No Tobacco History: Patient Tobacco Use Status: Former Tobacco user Tobacco use type: Cigarette Smoked in Last 30 Days: No e-Cigarette/Vaping Use: Former Use Patient Interested in Nicotine Replacement: No Patient Given Instructions on How to Stop Smoking: No Second Hand Smoke Exposure: No Substance Use History: Use of substances other than those prescribed or required for medical reasons: No Currently Displaying Signs/Symptoms of Drug Intoxication Withdrawal: No Any prior treatment program specific to substance use: No Domestic Abuse History: Have you been hit, kicked, punched, or otherwise hurt by someone within the past year? If so, by whom?: No Do you feel safe in your current relationship?: No Current Relationship Is there a partner from a previous relationship who is making you feel unsafe now?: No Are you made to feel afraid or neglected: No Advance Directives: Advance Directives: No Advance Directives Information Provided: No Homicidal Assessment: Do you have thoughts of harming others: None Do you have a plan to hurt others: No Plan Nutrition Assessment: Recently lost weight without trying: Yes How much weight loss: Unsure Eating poorly because of decreased appetite: Yes Nutrition screen score: 5 Nutrition Risks: No Nutritional Risk Poor oral hygiene: No Occupation Assessmet: service: No Current occupational status: retired Home Medications and Allergies Current Medications: Current Medications Acetaminophen (Acetaminophen Supp 650 Mg Supp.Rect) 650 mg IN Q6H PRN PRN Reason: Pain, Mild (Pain Scale 1-3) Albuterol Sulfate (Albuterol Sulfate 90 Mcg 8 Gm Inhaler) 2 puff INHALE RQ4H PRN PRN Reason: Shortness Of Breath Or Wheezing Amlodipine Besylate (Amlodipine Besylate 5 Mg Tablet) 5 mg PO DAILY [facility]; Protocol Furosemide (Furosemide 20 Mg Tablet) 20 mg PO DAILY PRN; Protocol PRN Reason: Edema Glucose (Glucose Gel 15 Gm Gel..Gram.) 15 gm PO Q15M PRN; Protocol PRN Reason: per Hypoglycemia Standing Ord. Glucose (Glucose Gel 15 Gm Gel..Gram.) 15 gm PO Q15M PRN; Protocol PRN Reason: per Hypoglycemia Standing Ord. Ceftriaxone Sodium 2 gm/ (Sodium Chloride) 50 mls @ 100 mls/hr IV Q24H [facility] Last Infusion: 06/28/22 23:47 Dose: Infused Dextrose (D10) 250 mls @ 750 mls/hr IV Q15M PRN; Protocol PRN Reason: per Hypoglycemia Standing Ord. Dextrose (D10) 250 mls @ 750 mls/hr IV Q15M PRN; Protocol PRN Reason: per Hypoglycemia Standing Ord. Insulin Human Lispro (Insulin Lispro 100 Unit/Ml 3 Ml Vial) 0 unit SUBCUT QIDACHS [facility]; Protocol Last Admin: 06/29/22 08:07 Dose: Not Given Lactulose (Lactulose 20 Gm/30 Ml Solution) 10 gm PO BID PRN PRN Reason: constipation Losartan Potassium (Losartan Potassium 50 Mg Tablet) 100 mg PO DAILY@1200 [facility]; Protocol Melatonin (Melatonin 3 Mg Tablet) 6 mg PO BEDTIME PRN PRN Reason: Insomnia Morphine Sulfate (Morphine Sulfate 4 Mg/Ml Cartridge) 4 mg IVPUSH Q4H PRN; Protocol PRN Reason: Pain, Severe (Pain Scale 7-10) Last Admin: 06/28/22 05:55 Dose: 4 mg Nadolol (Nadolol 40 Mg Tablet) 40 mg PO DAILY [facility]; Protocol Ondansetron HCl (Ondansetron Hcl 4 Mg/2 Ml Vial) 4 mg IVPUSH Q8H PRN PRN Reason: Nausea and Vomiting Pantoprazole Sodium (Pantoprazole Sodium 40 Mg/10 Ml Vial) 40 mg IVPUSH BID@0630,1630 [facility] Last Admin: 06/29/22 06:05 Dose: 40 mg Pharmacy Consult (Consult Rx Perform Med Rec) 1 each MISCELLANE ONCE PRN PRN Reason: Consult order Sodium Chloride (0.9 % Sodium Chloride Flush 3 Ml Syringe) [facility] Last Admin: 06/28/22 21:12 Dose: 3 ml Spironolactone (Spironolactone 25 Mg Tablet) 100 mg PO DAILY@1200 [facility]; Protocol Home Medications Medication Instructions Recorded Confirmed Type nadolol 40 mg tablet 40 mg PO DAILY 12/25/19 06/28/22 History albuterol sulfate 90 mcg/actuation 2 puff inhalation Q4-6H PRN 03/01/22 06/28/22 History aerosol inhaler (ProAir HFA) Shortness Of Breath Or Wheezing insulin aspart U-100 100 unit/mL 6 unit subcut TIDAC 03/20/22 06/28/22 History (3 mL) subcutaneous pen insulin degludec 200 unit/mL (3 90 unit subcut BEDTIME 03/20/22 06/28/22 History mL) subcutaneous pen (Tresiba FlexTouch U-200 insulin) lactulose 10 gram/15 mL oral 15 ml PO BID PRN constipation 03/20/22 06/28/22 History solution losartan 100 mg tablet 100 mg PO DAILY@1200 03/20/22 06/28/22 History amlodipine 5 mg tablet 1 tab PO DAILY 05/23/22 06/28/22 History furosemide 20 mg tablet 20 mg PO DAILY PRN Edema 06/28/22 06/28/22 History omeprazole 20 mg capsule,delayed 20 mg PO BID@0630,1630 06/28/22 06/28/22 History release spironolactone 100 mg tablet 100 mg PO DAILY@1200 06/28/22 06/28/22 History Allergies Allergy/AdvReac Type Severity Reaction Status Date / Time lisinopril [LISINOPRIL] Allergy Intermediate Shortness Verified 05/23/22 11:40 of Breath Physical Exam Vital signs: Vital Signs Temp 96.8 F 06/29/22 07:06 Pulse 56 06/29/22 07:06 Resp 16 06/29/22 07:06 BP 115/55 L 06/29/22 07:06 Pulse Ox 98 06/29/22 07:06 O2 Del Method Room Air 06/29/22 07:06 Intake & Output 06/28/22 06/29/22 06/29/22 18:59 06:59 18:59 Intake Total 50 / 50 Output Total 450 / 450 Balance -400 / -400 Urine Output (Average ml/kg/hr) 0.57 Intake: Intake, IV Amount 50 / 50 cefTRIAXone sodium 2 gm In 0.9 50 / 50 % Sodium Chloride 50 ml @ 100 mls/hr IV Q24H [facility] Rx#: [id number] Output: Output, Urine Amount 450 / 450 Other: Meal Refused No NPO No Urine Urinal Urine Color Tea Last Bowel Movement 06/27/22 Weight 65.771 kg - Constitutional Present: no acute distress - Routine HEENT Exam Head: Present: normal inspection Eye: Present: conjunctivae pale, scleral icterus - Routine Neck Exam Present: supple. Absent: lymphadenopathy - Routine Respiratory Exam Present: CTAB - Routine Cardiovascular Exam Cardiovascular: Present: S1, S2 - Routine Abdominal Exam Present: distended, hypoactive bowel sounds, soft. Absent: guarding - Routine Extremities Exam Present: pedal edema - Routine Skin Exam Present: intact Hem/Onc Consult Result - Labs CBC & Chem 7: 06/28/22 05:18 06/28/22 05:18 Assessment and Plan Patient Active problem list reviewed?: Yes (1) HCC (hepatocellular carcinoma) Status: Chronic Assessment and plan: 1. This is a 62-year-old gentleman with advanced/metastatic hepatocellular carcinoma.history of hepatitis-C related cirrhosis, esophageal varices with history of GI bleed status post esophageal banding, who is currently admitted for worsening abdominal pain. He has been on palliative treatment with nivolumab for his advanced HCC since March 2022. Imaging of his abdomen performed 06/27/2022 because of worsening abdominal pain revealed worsening malignancy with increase in size of lymphadenopathy as well as ascites. Enlargement of lytic lesion in the right L3 spinous process also noted. There is concern for hemorrhage in the stomach. He does have esophageal varices. He had been referred in the past to GI and recommended EGD and possible banding procedure but he has been resistant to any of these interventions. He is on Protonix and nadolol. I recommend GI consultation for their recommendations prior to his discharge. Patient has undergone therapeutic paracentesis and he reports some improvement in his abdominal discomfort. I have explained to him that he has progressive disease. He wants to go home now and talk with his brother who he states will be his healthcare proxy. He will follow-up in oncology clinic as scheduled next week. Thank you. - Time Spent With Patient Time Spent with Patient (in minutes): 20
[2022-06-29] MEDS: 0.9 % Sodium Chloride Flush 3 ML SYRINGE IVFLUSH (08:20)
[2022-06-29] MEDS: amLODIPine Besylate 5 MG TABLET PO (08:20)
[2022-06-29 11:15] LABS: Glucose, Whole Blood 323 mg/dL (60-115)
[2022-06-29] MEDS: Insulin Lispro 100 UNIT/ML 3 ML VIAL SUBCUT (11:42)
[2022-06-29] MEDS: Spironolactone 25 MG TABLET 100 MG PO (11:43)
[2022-06-29] MEDS: Losartan Potassium 50 MG TABLET 100 MG PO (11:43)
--- NOTE | 2022-06-29 11:46 | P.DS_ITS ---
DS: Providers Provider Date of Service: 06/29/22 Date of admission: 06/27/22 23:49 Date of discharge: 06/29/22 Primary care physician: [facility] Consults: 06/27/22 23:40 Consult to Hematology / Oncology Routine Consulting Provider: Evie Machado Reason for consultation: Advanced hepatocellular carcinoma Has provider been notified: No DS: Diagnosis Discharge Diagnosis (1) HCC (hepatocellular carcinoma): Status: Chronic DS: Summary Hospital Course Hospital Course: 2-year-old male with pertinent history of 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, hepatocellular carcinoma with metastasis, essential hypertension, mixed hyperlipidemia, insulin-dependent diabetes mellitus who presents to the emergency department for evaluation of abdominal discomfort.? Patient states he started having abdominal discomfort on the day of presentation which was constant, nonradiating, generalized and without any relieving factors.? Patient states that he felt that his abdomen was getting tense.? He is on chemotherapy for advanced hepatocellular carcinoma and followed by Dr. Machado.? He does have a history of esophageal varices.? Patient denies nausea, vomiting, hematochezia, melena.? He denies fever, chills, shortness of breath, chest pain, palpitations, changes in urinary habits. Hospital course Patient admitted; underwent a therapeutic paracentesis for which 3 L was removed with marked improvement as abdominal pain. He was observed overnight without acute issues. He was seen in consultation by Dr. Machado will follow-up in of [facility]. He is medically acceptable for discharge at this point Time Spent with Patient Time attestation: Total time managing care of this patient today ____ minutes. Discharge coordination time: Greater than 30 minutes Quality: Safe Use of Opioids Does Pt have an Active Cancer Diagnosis on the Problem List?: No Quality: Stroke Does the patient have a stroke diagnosis?: No Physical Exam Vital Signs: Vital Signs: Last Vital Signs Temp 96.8 F 06/29/22 07:06 Pulse 56 06/29/22 07:06 Resp 16 06/29/22 07:06 BP 115/55 L 06/29/22 07:06 Pulse Ox 98 06/29/22 07:06 O2 Del Method Room Air 06/29/22 07:06 BMI result Body Mass Index 24.9 Const: Other: No acute distress Resp: Other: Clear to auscultation bilaterally no rales rhonchi or wheezes Cardio: Other: No S4; positive S1-S2; no S3 murmurs rubs or gallops GI: Other: Soft diffusely tender with quiet bowel sounds. No audible ascites Extrem: Other: No edema bilaterally DS: Data Data Completed and Pending Labs on day of discharge: Laboratory Results - last 24 hr 06/28/22 06/28/22 06/28/22 13:50 13:50 13:50 POC Glucose Peritoneal pH 7.27 Peritoneal WBC 2.555 Peritoneal RBC 1.195 Periton Neutrophils 79 Periton Lymphocytes 7 Peritoneal Monocytes 9 Peritoneal Eosinophils 2 Peritoneal Other Cells 3 Peritoneal Tot Protein 2.6 Peritoneal Albumin 1.1 Peritoneal Glucose 149 06/28/22 06/28/22 06/28/22 16:18 20:41 23:34 POC Glucose 141 H 235 H 178 H Peritoneal pH Peritoneal WBC Peritoneal RBC Periton Neutrophils Periton Lymphocytes Peritoneal Monocytes Peritoneal Eosinophils Peritoneal Other Cells Peritoneal Tot Protein Peritoneal Albumin Peritoneal Glucose 06/29/22 06/29/22 06/29/22 04:04 07:04 11:03 POC Glucose 132 H 106 323 H Peritoneal pH Peritoneal WBC Peritoneal RBC Periton Neutrophils Periton Lymphocytes Peritoneal Monocytes Peritoneal Eosinophils Peritoneal Other Cells Peritoneal Tot Protein Peritoneal Albumin Peritoneal Glucose Preliminary micro results at discharge 06/28/22 13:50 Routine Culture - Preliminary Ascites Fluid No growth to date. Anaerobic Culture - Preliminary No growth to date. 06/27/22 17:45 Blood Culture - Preliminary Blood - Venous No growth after 24 hours. 06/27/22 17:37 Blood Culture - Preliminary Blood - Venous No growth after 24 hours. Discharge Plan Discharge Anticipated Discharge Date/Time: 06/29/22 11:38 Patient Disposition: Home, Self-Care Discharge Diagnosis: Ascites secondary to hepatocellular carcinoma Referrals: [facility] [Primary Care Provider] - 1 Week Discharge Medications: Continued (DME) pen needle, diabetic [BD Ultra-Fine Jennyfer Pen Needle] 32 gauge x 5/32 needle See Rx Instructions .ROUTE .MEDSUPPLY Qty: 60 11RF Rx Instructions: As directed twice a day (DME) lancets [TRUEplus Lancets] 28 gauge misc See Rx Instructions .ROUTE .MEDSUPPLY Qty: 100 11RF Rx Instructions: As directed four times a day ondansetron 8 mg Tablet,Disintegrating 8 mg PO Q8H PRN (Reason: Nausea) Qty: 60 3RF albuterol sulfate [ProAir HFA] 90 mcg/actuation HFA aerosol inhaler 2 puff INHALATION Q4-6H PRN (Reason: Shortness Of Breath Or Wheezing) Qty: 1 0RF amlodipine 5 mg tablet 1 tab PO DAILY Qty: 30 1RF nadolol 40 mg tablet 40 mg PO DAILY Qty: 30 1RF furosemide 20 mg tablet 20 mg PO DAILY PRN (Reason: Edema) Qty: 30 1RF losartan 100 mg tablet 100 mg PO DAILY@1200 Qty: 30 1RF insulin aspart U-100 100 unit/mL (3 mL) insulin pen 6 unit subcut TIDAC Qty: 15 0RF lactulose 10 gram/15 mL solution 15 ml PO BID PRN (Reason: constipation) Qty: 450 1RF insulin degludec [Tresiba FlexTouch U-200] 200 unit/mL (3 mL) insulin pen 90 unit subcut BEDTIME Qty: 20 1RF Changed spironolactone 100 mg tablet 100 mg PO DAILY@1200 Qty: 30 1RF omeprazole 20 mg capsule,delayed release(DR/EC) 20 mg PO BID@0630,1630 Qty: 30 3RF Discharge Orders: Discharge Order (Routine); Ordered 06/29/22 Ordered By: Richard Robledo Diet: Advance to usual diet Activity on Discharge: As tolerated Stand Alone Forms: Patient Portal Discharge page Care Plan Goals: Resume all pre-hospital medications Health Concerns: Utilize dilaudid sparingly for pain Plan of Treatment: Followed up with Dr. Javier as scheduled Assessment: See discharge summary
--- NOTE | 2022-06-29 11:55 | MHC.CM.PN ---
PT WILL DC HOME TODAY WITH NO SERVICES FAMILY TO TRANSPORT
== END 2022-06-29 12:34 | disposition home or self-care (01) | DRG 280 ==
LOC: HO.ED 22:34 → HO.EDOVER 06-28 02:15 → HO.IMC 06-28 12:19
PROVIDERS: Emergency Medicine; Radiology Diagnostic Radiology; Admitting Provider Student in an Organized Health Care Education/Training Program; Emergency Provider Internal Medicine; Visit Provider Hospitalist
DX: K70.31 Alcoholic cirrhosis of liver with ascites (principal); K66.1 Hemoperitoneum; E87.21 Acute metabolic acidosis; C77.8 Secondary and unspecified malignant neoplasm of lymph nodes of multiple regions; C79.51 Secondary malignant neoplasm of bone; C22.0 Liver cell carcinoma; K76.6 Portal hypertension; I85.10 Secondary esophageal varices without bleeding; I86.4 Gastric varices; E11.9 Type 2 diabetes mellitus without complications; B19.20 Unspecified viral hepatitis C without hepatic coma; E87.5 Hyperkalemia; Z88.0 Allergy status to penicillin; Z79.4 Long term (current) use of insulin; Z79.899 Other long term (current) drug therapy
CPT/HCPCS: 36415; 49083; 74176; 74178; 80048; 80053; 80076; 80307; 81001; 81003; 82042; 82077; 82140; 82945; 82947; 83605; 83690; 83735; 83880; 83986; 84157; 84484; 85014; 85018; 85025; 85027; 85610; 87040; 87070; 87073; 87086; 87205; 89051; 93005; 99285; J0613; J0696; J1170; J2270; J2405; P9047; Q9967

== ENCOUNTER 2022-08-15 08:46 | Day surgery (SDC) | payer MEDICAID, SELFPAY ==
--- NOTE | ~2022-08-15 | US_ITS ---
EXAMINATION: Ultrasound-guided paracentesis CLINICAL INFORMATION: Ascites COMPARISON: Previous exam 06/28/2022 TECHNIQUE: Procedure and risks and benefits including bleeding, infection and low blood pressure were discussed with the patient and informed consent was obtained. The left lower quadrant was prepped and draped in the usual sterile fashion. The skin and soft tissues were anesthetized with 1% lidocaine plain. Using ultrasound guidance and a 5 Lao one-step system, access to the ascitic fluid was obtained. 7 L of dark clear yellow fluid was removed. No diagnostic specimen was sent. FINDINGS: There is a large amount of ascites. US/US paracentesis abd w/image IMPRESSION: Ultrasound-guided paracentesis.
[2022-08-15 09:47] LABS: Glucose, Whole Blood 130 mg/dL (60-115)
[2022-08-15 10:05] LABS: MANUAL DIFF FLAG NO
[2022-08-15 10:08] LABS: Basophils Absolute Auto 0.1 X10*3/uL (0.0-0.2); Basophils Percent Auto 0.5 % (0-2); Eosinophils Absolute Auto 0.3 X10*3/uL (0.0-0.4); Eosinophils Percent Auto 2.9 % (0-4); Hematocrit 32.2 % (42.0-52.0); Imm Gran Abs Auto 0.07 X10*3/uL (0.00-0.03); Imm Gran Pct Auto 0.7 % (0.0-0.4); Lymphocytes Absolute Auto 0.8 X10*3/uL (1.2-4.9); Lymphocytes Percent Auto 8.1 % (20-40); Mean Corpuscular HGB Conc 34.2 g/dl (31.0-36.0); Mean Corpuscular Hemoglobin 31.7 pg (27.0-33.0); Mean Corpuscular Volume 92.8 fL (80.0-98.0); Mean Platelet Volume 10.2 fL (9.4-12.4); Monocytes Absolute Auto 0.8 X10*3/uL (0.1-1.2); Neutrophils Absolute Auto 7.5 x10*3/uL (2.0-8.3); Neutrophils Percent Auto 79.8 % (45-73); Platelet Count 231 X10*3/uL (160-400); Red Blood Count 3.47 X10*6/uL (4.60-5.80); Red Cell Distribution Width 14.3 % (11.0-16.0); White Blood Count 9.5 X10*3/uL (4.8-10.8)
[2022-08-15 10:13] LABS: INTERNATIONAL NORM RATIO 1.2 (0.9-1.1); Prothrombin Time 13.9 SEC (10.0-13.1)
[2022-08-15 10:16] LABS: Partial Thromboplastin Time 31.4 SEC (26.0-36.4)
[2022-08-15 10:35] VITALS: BMI 26.2
[2022-08-15] MEDS: HYDROmorphone HCl 2 MG TABLET PO (10:37)
[2022-08-15 11:50] VITALS: BP 139/69; PULSE 88; RESP 16; TEMP 36.3; O2SAT 97
[2022-08-15] MEDS: Lidocaine HCl 1 % MPF 5 ML VIAL SUBCUT (12:04)
[2022-08-15 12:05] VITALS: BP 139/71; PULSE 101; RESP 16; O2SAT 98
[2022-08-15 12:20] VITALS: BP 128/69; PULSE 85; RESP 16; O2SAT 97
[2022-08-15 12:35] VITALS: BP 116/69; PULSE 108; RESP 16; TEMP 36.4; O2SAT 98
--- NOTE | 2022-08-15 12:57 | PC.NURSE ---
assisted patient with dressing, education provided, staff accompanied to vehicle.
== END 2022-08-15 12:50 | disposition home or self-care (01) ==
PROVIDERS: Visit Provider Radiology Diagnostic Radiology
DX: R18.8 Other ascites (principal); C22.0 Liver cell carcinoma; K74.60 Unspecified cirrhosis of liver; I10 Essential (primary) hypertension; J44.9 Chronic obstructive pulmonary disease, unspecified; J45.909 Unspecified asthma, uncomplicated; E11.21 Type 2 diabetes mellitus with diabetic nephropathy; E11.65 Type 2 diabetes mellitus with hyperglycemia; Z79.4 Long term (current) use of insulin; Z79.899 Other long term (current) drug therapy; Z79.84 Long term (current) use of oral hypoglycemic drugs; Z87.891 Personal history of nicotine dependence
CPT/HCPCS: 36415; 49083; 82947; 85025; 85610; 85730

== ENCOUNTER 2022-08-20 10:37 | Emergency (ER) | payer MEDICAID, SELFPAY ==
--- NOTE | 2022-08-20 | ECG_ITS ---
Test Reason : SYNCOPE Blood Pressure : / mmHG Vent. Rate : 072 BPM Atrial Rate : 072 BPM P-R Int : 184 ms QRS Dur : 096 ms QT Int : 362 ms P-R-T Axes : 039 000 014 degrees QTc Int : 396 ms Normal sinus rhythm Low voltage QRS Septal infarct (cited on or before 27-JUN-2022) Abnormal ECG When compared with ECG of 27-JUN-2022 17:17, Questionable change in initial forces of Septal leads Referred By: Jax Hyman Electronically Signed By:Stuart Gamboa
[2022-08-20 10:53] VITALS: BP 80/50; PULSE 120
[2022-08-20 10:55] VITALS: BP 83/45; PULSE 74; RESP 14; TEMP 37.1; O2SAT 93; BMI 29.4
--- NOTE | 2022-08-20 11:41 | ED_ITS ---
HPI - Fall General Chief Complaint: Fall Stated Complaint: AMS,FALL FROM HOSPICE BED PER EMS Time Seen by Provider: 08/20/22 11:02 Source: patient and EMS Mode of arrival: EMS Limitations: no limitations History of Present Illness HPI Narrative: 62-year-old male with history of hepatocellular of some carcinoma, hepatitis-C, liver cirrhosis, alcohol abuse, pancreatitis, type 2 diabetes and hypertension currently on hospice care and having had been on chemotherapy presents after falling/slipping out of bed. Patient did hit the right side of his head. He does not remember if he lost consciousness or not. He complains of pain ?everywhere? and there is no clear relieving or exacerbating features. Describes the pain as severe. Patient was on the floor overnight when he was found behind his hospital bed, called 911. Related Data Previous Rx's Medication Instructions Recorded pen needle, diabetic 32 gauge x #60 ea 01/08/20 (BD Ultra-Fine Jennyfer Pen Needle) lancets 28 gauge (TRUEplus Lancets) #100 ea 08/21/21 ondansetron 8 mg disintegrating 8 mg PO Q8H PRN Nausea #60 tabs 03/21/22 tablet albuterol sulfate 90 mcg/actuation 2 puff inhalation Q4-6H PRN 06/29/22 aerosol inhaler (ProAir HFA) Shortness Of Breath Or Wheezing #1 g amlodipine 5 mg tablet 1 tab PO DAILY #30 tabs 06/29/22 furosemide 20 mg tablet 20 mg PO DAILY PRN Edema #30 tabs 06/29/22 hydromorphone 2 mg tablet 2 mg PO Q6H PRN pain #20 tabs 06/29/22 (Dilaudid) insulin aspart U-100 100 unit/mL 6 unit (0.06 mL) subcut TIDAC #15 06/29/22 (3 mL) subcutaneous pen mL insulin degludec 200 unit/mL (3 90 unit (0.45 mL) subcut BEDTIME 06/29/22 mL) subcutaneous pen (Tresiba #20 mL FlexTouch U-200 insulin) lactulose 10 gram/15 mL oral 15 ml PO BID PRN constipation #450 06/29/22 solution mL losartan 100 mg tablet 100 mg PO DAILY@1200 #30 tabs 06/29/22 nadolol 40 mg tablet 40 mg PO DAILY #30 tabs 06/29/22 Allergies Allergy/AdvReac Type Severity Reaction Status Date / Time lisinopril [LISINOPRIL] Allergy Intermediate Shortness Verified 08/20/22 11:04 of Breath Review of Systems Review of Systems: CONSTITUTIONAL: Denies weight loss, fever and chills. HEENT: Denies changes in vision and hearing. RESPIRATORY: Denies SOB and cough. CV: Denies palpitations no CP. GI: Positive abdominal pain, negative nausea, vomiting and diarrhea. : Denies dysuria and urinary frequency. MSK: Diffuse musculoskeletal pain SKIN: Denies rash and pruritus. NEUROLOGICAL: Denies headache and syncope. PSYCHIATRIC: Denies recent changes in mood. Denies anxiety and depression. 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 Pancreatitis Peripheral neuropathy Polysubstance abuse Portal hypertension Proteinuria Splenomegaly Tobacco abuse Type 2 diabetes mellitus with hyperglycemia Type 2 diabetes mellitus with other diabetic kidney complication Surgical History History of esophagogastroduodenoscopy (EGD) Hx of colonoscopy Family History Family History Mother Diabetes Paternal Uncle Diabetes Stomach cancer Maternal Uncle Diabetes Father Respiratory care problem Coronary artery disease Brother Coronary artery disease Social History Social History Household Members: None Housing: Apartment Alcohol intake: former Patient Tobacco Use Status: Former Tobacco user Tobacco use type: Cigarette e-Cigarette/Vaping Use: Former Use Second Hand Smoke Exposure: No Advance Directives: No Advance Directives Information Provided: No service: No Current occupational status: retired Physical Exam Vital Signs: Vital Signs: Last Vital Signs Temp 98.8 F 08/20/22 10:55 Pulse 81 08/20/22 13:01 Resp 20 08/20/22 13:01 BP 91/40 L 08/20/22 13:01 Pulse Ox 93 08/20/22 10:55 O2 Del Method Room Air 08/20/22 10:55 BMI result Body Mass Index 29.4 GEN: Chronically ill-appearing in no acute distress HEENT: Normocephalic, atraumatic, normal external ears, nose appears normal, no oropharyngeal edema or exudates Eyes: Normal to appearance Neck: Supple, no lymphadenopathy Respiratory: Talks in complete sentences, no respiratory distress, clear to auscultation bilaterally Cardiovascular: Regular rate and rhythm, no murmurs rubs or gallops Abdomen: Soft, nontender, nondistended, no guarding, no rebound Back: No CVA tenderness Extremities: No clubbing cyanosis or edema Neurologic: No focal neurologic deficits, cranial nerves 2-12 intact, strength is 5/5 bilaterally Skin: No rash Course Course Course Narrative: 62-year-old male with multiple chronic medical problems including hepatocellular carcinoma, liver cirrhosis on hospice care presents after fall out of bed. Patient depends of generalized pain. Symptoms are severe. He is hypotensive. I have been in touch with her patient case manager who has also been in touch with hospice care. Apparently, panicked and called 911. At this time, there is no indication to do any additional studies including laboratory analysis, imaging studies given patient's hospice status. We will attempt to keep patient comfortable at this time. Family is not bedside yet better on route. I pending constant contact with Case Management Reevaluation(s) Reevaluation #1: For transfer coming at 5:00 p.m.. Patient will be discharged back to hospice care. Time: 15:59 Discharge Plan Discharge Clinical Impression: Hepatocellular carcinoma, Cirrhosis, Fall, Total body pain, Hospice care Patient Disposition: Home, Self-Care Instructions: Cirrhosis (ED), Advance Directives (ED), Liver Cancer (DC), Fall Prevention (ED) Prescriptions: No Action (DME) pen needle, diabetic [BD Ultra-Fine Jennyfer Pen Needle] 32 gauge x 5/32 needle See Rx Instructions .ROUTE .MEDSUPPLY Qty: 60 11RF Rx Instructions: As directed twice a day (DME) lancets [TRUEplus Lancets] 28 gauge misc See Rx Instructions .ROUTE .MEDSUPPLY Qty: 100 11RF Rx Instructions: As directed four times a day ondansetron 8 mg Tablet,Disintegrating 8 mg PO Q8H PRN (Reason: Nausea) Qty: 60 3RF albuterol sulfate [ProAir HFA] 90 mcg/actuation HFA aerosol inhaler 2 puff INHALATION Q4-6H PRN (Reason: Shortness Of Breath Or Wheezing) Qty: 1 0RF amlodipine 5 mg tablet 1 tab PO DAILY Qty: 30 1RF nadolol 40 mg tablet 40 mg PO DAILY Qty: 30 1RF furosemide 20 mg tablet 20 mg PO DAILY PRN (Reason: Edema) Qty: 30 1RF losartan 100 mg tablet 100 mg PO DAILY@1200 Qty: 30 1RF insulin aspart U-100 100 unit/mL (3 mL) insulin pen 6 unit subcut TIDAC Qty: 15 0RF lactulose 10 gram/15 mL solution 15 ml PO BID PRN (Reason: constipation) Qty: 450 1RF insulin degludec [Tresiba FlexTouch U-200] 200 unit/mL (3 mL) insulin pen 90 unit subcut BEDTIME Qty: 20 1RF hydromorphone [Dilaudid] 2 mg tablet 2 mg PO Q6H PRN (Reason: pain) Qty: 20 0RF Rx Instructions: Partial Fill upon patient request. Referrals: Isaiah KIM [Outside]
--- NOTE | 2022-08-20 12:01 | PC.NURSE ---
patient hypotensive. ED provider aware, at the bedside.
[2022-08-20 13:01] VITALS: BP 91/40; PULSE 81; RESP 20
--- NOTE | 2022-08-20 14:25 | MHC.CM.ED ---
Received case management consult from Dr Hyman. Patient was sent to ER by family after being found unresponsive. Patient is active with [facility]. Per [facility], family did not call hospice, just sent patient to ER. Patient will return home with hospice. T/W spoke with patient's brother/HCP, Ronan, via telephone at [phone]. [facility] booked for 5pm. Patient will return to [address] [place] [address], [address], [place]. Continue to monitor for d/c needs.
== END 2022-08-20 17:31 | disposition home or self-care (01) ==
PROVIDERS: Emergency Provider Emergency Medicine
DX: C22.0 Liver cell carcinoma (principal); M79.10 Myalgia, unspecified site; K74.60 Unspecified cirrhosis of liver; Z91.81 History of falling; E11.9 Type 2 diabetes mellitus without complications; I10 Essential (primary) hypertension; E78.5 Hyperlipidemia, unspecified; B19.20 Unspecified viral hepatitis C without hepatic coma; Z79.4 Long term (current) use of insulin; Z79.899 Other long term (current) drug therapy
CPT/HCPCS: 93005; 99283; 99284